=== PATIENT | male | born 1965 | race Caucasian/White ===

== ENCOUNTER 2017-02-25 12:11 | Inpatient (IN) | payer OTHER ==
[~2017-02-25] VITALS: Ht 167.6 cm; Wt 75.5 kg
[2017-02-25] MEDS ORDERED: OMEP40CA2 PO (12:33)
[2017-02-25] MEDS ORDERED: LIPI20TA PO (12:33)
[2017-02-25] MEDS ORDERED: AMLO10TA2 PO (12:33)
[2017-02-25] MEDS ORDERED: METF500T13 PO (12:33)
[2017-02-25] MEDS ORDERED: LISI20TA PO (12:33)
[2017-02-25] MEDS ORDERED: ASPI81TA85 PO (12:33)
[2017-02-25] MEDS ORDERED: NS 1,000 ML IV ONE (13:15)
[2017-02-25] MEDS ORDERED: ONDANSETRON 4MG/2ML VIAL (J2405) IV ONE (13:15)
[2017-02-25] MEDS: MORPHINE 4 MG/ML 1ML SYRINGE IV PRN ×3 (13:31→17:42)
[2017-02-25 13:36] LABS: BASO % 0.2 % (0.0-1.0); EOS % 0.4 % (0.0-3.0); IMMATURE GRANULOCYTE % 0.3 % (0-0); LYMPH % 9.2 % (24.0-44.0); MEAN CORPUSCULAR HGB CONC 32.5 g/dl (32.0-36.5); MEAN CORPUSCULAR VOLUME 83.1 fl (80.0-96.0); MONO # 0.5 10^3/uL (0.0-0.8); NEUTROPHILS # 9.6 10^3/uL (1.8-7.7); NEUTROPHILS % 85.9 % (36.0-66.0); PLATELET COUNT, AUTOMATED 265 10^3/uL (150-450); RED CELL DISTRIBUTION WIDTH 16.1 % (11.5-14.5); WHITE BLOOD COUNT 11.2 10^3/uL (4.0-10.0)
--- NOTE | 2017-02-25 13:42 | REP ---
CT abdomen pelvis without IV or bowel contrast: The entire colon is distended with fecal residue and gas. There is abrupt focal narrowing at the rectosigmoid colon, possibly a neoplastic or post inflammatory stricture. The distal small bowel is mildly dilated. The remainder of the small bowel is not dilated. There is no pneumoperitoneum. There is no ascites. The visualized lung marie are unremarkable. The unenhanced hepatic parenchyma, gallbladder, pancreas and spleen are unremarkable except for splenic calcified granulomas. The adrenals and kidneys are unremarkable. The abdominal aorta is unremarkable except for calcified atheroma. Pelvis: The bladder is unremarkable. There is no adenopathy or ascites. Impression: There is focal abrupt luminal narrowing of the rectosigmoid colon, possibly post inflammatory versus neoplastic stricture. The colon is distended with fecal residue and gas. The distal small bowel is mildly distended. Signed by Wolfgang Newman MD 02/25/2017 01:34 P
[2017-02-25 14:23] LABS: ALBUMIN 3.7 GM/DL (3.2-5.2); ALBUMIN/GLOBULIN RATIO 1.16 (1.00-1.93); ALKALINE PHOSPHATASE 80 U/L (45-117); ALT/SGPT 31 U/L (12-78); AMYLASE 39 U/L (25-115); ANION GAP 7 MEQ/L (8-16); AST/SGOT 13 U/L (15-37); BILIRUBIN,DIRECT 0.2 MG/DL (0.0-0.2); BILIRUBIN,TOTAL 0.6 MG/DL (0.2-1.0); BLOOD UREA NITROGEN 18 MG/DL (7-18); CALCIUM LEVEL 9.1 MG/DL (8.5-10.1); CARBON DIOXIDE LEVEL 26 MEQ/L (21-32); CHLORIDE LEVEL 107 MEQ/L (98-107); CREATININE FOR GFR 0.84 MG/DL (0.70-1.30); GLOMERULAR FILTRATION RATE > 60.0 (>60); GLUCOSE, FASTING 126 MG/DL (70-105); SODIUM LEVEL 140 MEQ/L (136-145); TOTAL PROTEIN 6.9 GM/DL (6.4-8.2)
[2017-02-25] MEDS ORDERED: LOPR1TAB6 PO (15:16)
[2017-02-25] MEDS ORDERED: VITMTA PO (15:16)
[2017-02-25] MEDS ORDERED: OMEP20CA3 PO (15:16)
[2017-02-25] MEDS ORDERED: GLUCTAB PO (15:16)
[2017-02-25] MEDS ORDERED: METOCLOPRAMIDE INJ 10MG/2ML VIAL (J2765) IV PRN (15:45)
[2017-02-25] MEDS ORDERED: PROMETHAZINE INJ 25 MG/ML VIAL (J2550) IV PRN (15:45)
[2017-02-25] MEDS ORDERED: MORPHINE 2 MG/ML 1ML SYRINGE IV PRN (15:45)
[2017-02-25] MEDS ORDERED: GLUCAGON FOR INJ 1 MG VIAL (J1610) SC PRN (15:45)
[2017-02-25] MEDS ORDERED: GLUCOSE 4 GM CHEW TABLET PO PRN (15:45)
[2017-02-25] MEDS ORDERED: DEXTROSE 50% 50 ML SYRINGE IV PRN (15:45)
--- NOTE | 2017-02-25 16:15 | HPEPDOC ---
General Date of Admission Primary Care Physician: A Attending Physician: Saji Armijo Jr Chief Complaint The patient is a 51-year-old male admitted with a reason for visit of Abd Pain. Source: Patient, Family ( ) Exam Limitations: No limitations Timing/Duration: Day(s) (3), Getting worse Severity: Severe Associated Symptoms: Nausea, Vomiting History of Present Illness Patient present with 3 day history of worsening abdominal pain. This morning pt woke up to severe nausea and vomiting. He states that his pain has been constant. It is made worse by moving. It is also made worse with eating and drinking. Particular coffee. That causes the most amount of pain. Patients states that prior to this, he was having normal bowel moments without any issues. However, since this started he has decrease appetite. He has only been able tolerate some crackers. He has been unable to have bowel moment and has been having very little gas. He feels the urge to defecate, but he has been unable to go and feels "really gassy". Patient denies fevers, blood in stool, denies blood in the urine. An abdominal CT showed a focal abrupt luminal narrowing of the rectosigmoid colon, possible post inflammatory versus neoplastic stricture. The colon is also distended with fecal residue and gas. The distal small bowel is mildly distended. Surgery was consulted as results of the abdominal distention and possible obstruction. Home Medications Scheduled Aspirin (Aspir-81) 81 Mg Tab, 81 MG PO DAILY, (Reported) Atorvastatin Calcium (Lipitor) 20 Mg Tab, 20 MG PO QHS, (Reported) Metformin Hydrochloride (Glucophage Xr) 500 Mg Tab, 500 MG PO DAILY, (Reported) TAKES AT NOON Metoprolol Tartrate (Lopressor) 50 Mg Tab, 50 MG PO BID, (Reported) Multivitamins *[facility] STOCKED* (Thera M Plus *[facility] STOCK[facility]*) 1 Tab Tab, 1 TAB PO DAILY, (Reported) Omeprazole (Omeprazole) 20 Mg Cap, 20 MG PO BID, (Reported) Allergies Coded Allergies: No Known Drug Allergy (Verified Allergy, Unknown, 02/25/17) Past Medical History Medical History Diabetes, hypertension Surgical History No past surgical history Family History Father of throat cancer, brother had cancer at age 46 (patient does not know what type of cancer it was) Social History * Smoker: Denies Alcohol: occationally Drugs: denies Recent Travel/Sick Contacts: Denies: Recent travel, Recent sick contacts Lives at home with his and daughter Review of Symptoms Constitutional: Reports: Chills, Weight Loss (admits to a 20 pound weight loss over the last year), Denies: Fever, Night Sweats, Fatigue Eyes: Denies: Pain, Conjunctivae inflammation, Eyelid inflammation ENT: Denies: Head Aches Skin: Denies: Rash, Jaundice Pulmonary: Denies: Dyspnea, Cough Cardiovascular: Denies: Chest Pain, Palpitations, Orthopnea Gastrointestinal: Reports: Nausea, Vomiting, Abdominal Pain, Constipation, Denies: Diarrhea, Melena, Hematochezia Genitourinary: Denies: Hematuria Hematologic: Denies: Bruising, Bleeding Excessively, Petecchia Physical Examination General Exam: Positive: Cooperative, Mild Distress Neck Exam: Positive: Supple, JVD Chest Exam: Positive: Clear to auscultation, Negative: Rales, Wheezing Heart Exam: Positive: Rate Normal, Normal S1, Normal S2, Negative: Gallops, Murmurs Abdomen Exam: Positive: Normal bowel sounds, Tenderness (palpate entire abdomen , normal bowel sounds), Other (Mild abdominal distension ), Negative: Hepatospenomegaly, Mass, Hernia Extremity Exam: Negative: Cyanosis, Edema Vital Signs Vital Signs Date Time Temp Pulse Resp B/P (MAP) Pulse Ox O2 Delivery O2 Flow Rate FiO2 02/25/17 14:54 18 02/25/17 13:54 97.9 79 132/80 (97) 99 Room Air Laboratory Data Labs 24H Laboratory Tests 2 02/25/17 13:21: Immature Granulocyte % (Auto) 0.3H, White Blood Count 11.2H, Red Blood Count 4.85, Hemoglobin 13.1L, Hematocrit 40.3L, Mean Corpuscular Volume 83.1, Mean Corpuscular Hemoglobin 27.0, Mean Corpuscular Hemoglobin Concent 32.5, Red Cell Distribution Width 16.1H, Platelet Count 265, Neutrophils (%) (Auto) 85.9H, Lymphocytes (%) (Auto) 9.2L, Monocytes (%) (Auto) 4.0, Eosinophils (%) (Auto) 0.4, Basophils (%) (Auto) 0.2, Neutrophils # (Auto) 9.6H, Lymphocytes # (Auto) 1.0L, Monocytes # (Auto) 0.5, Eosinophils # (Auto) 0.0, Basophils # (Auto) 0.0, Immature Granulocyte # (Auto) 0.0, Nucleated Red Blood Cells % (auto) 0.0, Anion Gap 7L, Glomerular Filtration Rate > 60.0, Calcium Level 9.1, Aspartate Amino Transf (AST/SGOT) 13L, Alanine Aminotransferase (ALT/SGPT) 31, Alkaline Phosphatase 80, Total Bilirubin 0.6, Direct Bilirubin 0.2, Total Protein 6.9, Albumin 3.7, Albumin/Globulin Ratio 1.16, Amylase Level 39, Lipase 169 CBC/BMP Laboratory Tests 02/25/17 13:21 Red Blood Count 4.85, Mean Corpuscular Volume 83.1, Mean Corpuscular Hemoglobin 27.0, Mean Corpuscular Hemoglobin Concent 32.5, Red Cell Distribution Width 16.1 H, Neutrophils (%) (Auto) 85.9 H, Lymphocytes (%) (Auto) 9.2 L, Monocytes ( %) (Auto) 4.0, Eosinophils (%) (Auto) 0.4, Basophils (%) (Auto) 0.2, Neutrophils # (Auto) 9.6 H, Lymphocytes # (Auto) 1.0 L, Monocytes # (Auto) 0.5, Eosinophils # (Auto) 0.0, Basophils # (Auto) 0.0 Assessment/Plan A 51-year-old gentleman who presented with 3 days worth of abdominal pain accompanied by nausea and vomiting. CT showed abrupt luminal narrowing of the rectosigmoid colon, possible inflammatory versus neoplastic stricture. Patient will be admitted. Patient will remain nothing by mouth. Simethicone has been provided for patient extreme gassiness. Antibiotics is also on board for possibility of infectious process. Patient will be monitored overnight for improvement. Tomorrow morning patient will be reassessed for clinical improvement as well as decreased abdominal distention. If patient is not improving an NG tube will be placed. Also I will consider the possibility of a GI consult for colonic stent. I expect patient's distention and abdominal pain to improve given an overnight bowel rest Plan / VTE VTE Prophylaxis Ordered?: No GME ATTESTATION GME ATTESTATION My preceptor for this patient encounter was physically present in the building during the encounter and was fully available. As needed, all aspects of the patient interview, examination, medical decision making process, and medical care plan development were reviewed and approved by the preceptor. Preceptor is aware and concurs with the plan as stated in the body of this note and will attest to such by his/her cosignature. BOSTON SANTANA DO Feb 25, 2017 15:46
[2017-02-25] MEDS ORDERED: cefTRIAXone SOD 1 GM in D5W 50 ML IV SCH (17:00)
[2017-02-25] MEDS: SIMETHICONE 80 MG CHEW TAB PO SCH ×3 (17:00→21:35)
[2017-02-25 17:20] VITALS: BP 138/88
[2017-02-25] MEDS: NS 1,000 ML IV SCH (17:25)
[2017-02-25] MEDS ORDERED: CIPROFLOXACIN 400 MG in APPROPRIATE DILUENT 1 EA IV SCH ×2 (18:00→18:45)
[2017-02-25] MEDS: HumaLOG INSULIN (NovoLOG) PER UNIT SC SCH ×2 (18:35→23:56)
[2017-02-25] MEDS ORDERED: metroNIDAZOLE 500 MG in APPROPRIATE DILUENT 1 EA IV SCH (19:00)
[2017-02-25] MEDS: ONDANSETRON 4MG/2ML VIAL (J2405) IV PRN (19:59)
[2017-02-25] MEDS: cefTRIAXone SOD 1 GM in D5W 50 ML IV SCH (21:34)
[2017-02-25] MEDS: METOPROLOL TART 50 MG TAB PO SCH (21:35)
[2017-02-25] MEDS: DOCUSATE SODIUM 100 MG CAP PO SCH (21:35)
[2017-02-25] MEDS: metroNIDAZOLE 500 MG in APPROPRIATE DILUENT 1 EA IV SCH (22:18)
[2017-02-25] MEDS: CIPROFLOXACIN 400 MG in APPROPRIATE DILUENT 1 EA IV SCH (23:55)
[2017-02-26] VITALS: BP 134/80
[2017-02-26] MEDS: PANTOPRAZOLE 40MG INJ (PROTONIX) (C9113) IV SCH ×3 (00:30→20:54)
[2017-02-26] MEDS: NS 1,000 ML IV SCH ×4 (02:45→19:56)
[2017-02-26 04:24] VITALS: BP 141/84
[2017-02-26] MEDS: ONDANSETRON 4MG/2ML VIAL (J2405) IV PRN (04:53)
[2017-02-26] MEDS: MORPHINE 4 MG/ML 1ML SYRINGE IV PRN ×3 (04:53→17:39)
[2017-02-26] MEDS: metroNIDAZOLE 500 MG in APPROPRIATE DILUENT 1 EA IV SCH ×3 (05:08→20:54)
[2017-02-26] MEDS: HumaLOG INSULIN (NovoLOG) PER UNIT SC SCH ×4 (06:00→23:27)
[2017-02-26 06:41] LABS: MEAN CORPUSCULAR HEMOGLOBIN 27.1 pg (27.0-33.0); MEAN CORPUSCULAR HGB CONC 32.5 g/dl (32.0-36.5); MEAN CORPUSCULAR VOLUME 83.3 fl (80.0-96.0); RED CELL DISTRIBUTION WIDTH 16.4 % (11.5-14.5)
[2017-02-26 07:00] LABS: ANION GAP 7 MEQ/L (8-16); BLOOD UREA NITROGEN 14 MG/DL (7-18); CALCIUM LEVEL 8.3 MG/DL (8.5-10.1); CARBON DIOXIDE LEVEL 25 MEQ/L (21-32); CHLORIDE LEVEL 110 MEQ/L (98-107); CREATININE FOR GFR 0.79 MG/DL (0.70-1.30); GLOMERULAR FILTRATION RATE > 60.0 (>60); GLUCOSE, FASTING 129 MG/DL (70-105); POTASSIUM SERUM 3.9 MEQ/L (3.5-5.1); SODIUM LEVEL 142 MEQ/L (136-145)
[2017-02-26 08:00] VITALS: BP 136/82
[2017-02-26] MEDS ORDERED: PANTOPRAZOLE 40MG TAB (PROTONIX) PO SCH (09:00)
[2017-02-26] MEDS: DOCUSATE SODIUM 100 MG CAP PO SCH ×2 (09:46→20:54)
[2017-02-26] MEDS: SIMETHICONE 80 MG CHEW TAB PO SCH ×4 (09:47→20:54)
[2017-02-26] MEDS: METOPROLOL TART 50 MG TAB PO SCH ×2 (09:47→20:54)
[2017-02-26] MEDS: CIPROFLOXACIN 400 MG in APPROPRIATE DILUENT 1 EA IV SCH ×2 (10:13→22:06)
--- NOTE | 2017-02-26 10:15 | IPNPDOC ---
Date Seen The patient was seen on 02/26/17. Progress Note Patient presented with 3 day history of worsening abdominal pain. . An abdominal CT showed a focal abrupt luminal narrowing of the rectosigmoid colon, possible post inflammatory versus neoplastic stricture. The colon is also distended with fecal residue and gas. The distal small bowel is mildly. Surgery was consulted as results of the abdominal distention and possible obstruction. This morning patient admits to mild nausea. He admitted a bowel movement as well as passing flatus. He reports decrease abdominal pain. Physical Examination Vital signs: See below General Exam: Positive: Cooperative, Mild Distress Neck Exam: Positive: Supple, JVD Chest Exam: Positive: Clear to auscultation, Negative: Rales, Wheezing Heart Exam: Positive: Rate Normal, Normal S1, Normal S2, Negative: Gallops, Murmurs Abdomen Exam: Mildly distended abdomen, nontender to palpation Negative: Hepatospenomegaly, Mass, Hernia Extremity Exam: Negative: Cyanosis, Edema Assessment/Plan A 51-year-old gentleman who presented with 3 days worth of abdominal pain accompanied by nausea and vomiting. CT showed abrupt luminal narrowing of the rectosigmoid colon, possible inflammatory versus neoplastic stricture. Antibiotics were started for the possibility of inflammatory process. This morning patient has made clinical improvement. His white count this morning is 11. I expect patient to continue to make clinical improvements, suggesting a stricture is most likely of an infectious etiology. If patient continues to make clinical improvement, I will progress his diet as tolerated. Upon discharge patient will be evaluated for the possibility of colonic malignancy. VS, I&O, 24H, Fishbone Vital Signs/I&O Vital Signs Date Time Temp Pulse Resp B/P (MAP) Pulse Ox O2 Delivery O2 Flow Rate FiO2 02/26/17 09:47 71 141/70 02/26/17 09:18 18 Room Air 02/26/17 04:24 97.9 95 I&O- Last 24 Hours up to 6 AM 02/27/17 06:00 Intake Total 100 ml Balance 100 ml Laboratory Data 24H LABS Laboratory Tests 2 02/25/17 13:21: Immature Granulocyte % (Auto) 0.3H, White Blood Count 11.2H, Red Blood Count 4.85, Hemoglobin 13.1L, Hematocrit 40.3L, Mean Corpuscular Volume 83.1, Mean Corpuscular Hemoglobin 27.0, Mean Corpuscular Hemoglobin Concent 32.5, Red Cell Distribution Width 16.1H, Platelet Count 265, Neutrophils (%) (Auto) 85.9H, Lymphocytes (%) (Auto) 9.2L, Monocytes (%) (Auto) 4.0, Eosinophils (%) (Auto) 0.4, Basophils (%) (Auto) 0.2, Neutrophils # (Auto) 9.6H, Lymphocytes # (Auto) 1.0L, Monocytes # (Auto) 0.5, Eosinophils # (Auto) 0.0, Basophils # (Auto) 0.0, Immature Granulocyte # (Auto) 0.0, Nucleated Red Blood Cells % (auto) 0.0, Anion Gap 7L, Glomerular Filtration Rate > 60.0, Calcium Level 9.1, Aspartate Amino Transf (AST/SGOT) 13L, Alanine Aminotransferase (ALT/SGPT) 31, Alkaline Phosphatase 80, Total Bilirubin 0.6, Direct Bilirubin 0.2, Total Protein 6.9, Albumin 3.7, Albumin/Globulin Ratio 1.16, Amylase Level 39, Lipase 169 02/25/17 17:47: Bedside Glucose (Misc Panel) 107H 02/25/17 23:52: Bedside Glucose (Misc Panel) 104 02/26/17 06:12: Bedside Glucose (Misc Panel) 112H 02/26/17 06:27: Nucleated Red Blood Cells % (auto) 0.0, Anion Gap 7L, Glomerular Filtration Rate > 60.0, Blood Urea Nitrogen 14, Creatinine 0.79, Sodium Level 142, Potassium Level 3.9, Chloride Level 110H, Carbon Dioxide Level 25, Calcium Level 8.3L CBC/BMP Laboratory Tests 02/25/17 13:21 Red Blood Count 4.85, Mean Corpuscular Volume 83.1, Mean Corpuscular Hemoglobin 27.0, Mean Corpuscular Hemoglobin Concent 32.5, Red Cell Distribution Width 16.1 H, Neutrophils (%) (Auto) 85.9 H, Lymphocytes (%) (Auto) 9.2 L, Monocytes ( %) (Auto) 4.0, Eosinophils (%) (Auto) 0.4, Basophils (%) (Auto) 0.2, Neutrophils # (Auto) 9.6 H, Lymphocytes # (Auto) 1.0 L, Monocytes # (Auto) 0.5, Eosinophils # (Auto) 0.0, Basophils # (Auto) 0.0 02/26/17 06:27 Red Blood Count 4.32, Mean Corpuscular Volume 83.3, Mean Corpuscular Hemoglobin 27.1, Mean Corpuscular Hemoglobin Concent 32.5, Red Cell Distribution Width 16.4 H, Calcium Level 8.3 L GME ATTESTATION GME ATTESTATION My preceptor for this patient encounter was physically present in the building during the encounter and was fully available. As needed, all aspects of the patient interview, examination, medical decision making process, and medical care plan development were reviewed and approved by the preceptor. Preceptor is aware and concurs with the plan as stated in the body of this note and will attest to such by his/her cosignature. BOSTON SANTANA DO Feb 26, 2017 10:15
[2017-02-26 12:00] VITALS: BP 128/76
[2017-02-26 16:00] VITALS: BP 120/75
[2017-02-26] MEDS: cefTRIAXone SOD 1 GM in D5W 50 ML IV SCH (19:54)
[2017-02-26 21:00] VITALS: BP 115/68
[2017-02-27] VITALS (7 sets, daily range): BP systolic 122–145; BP diastolic 72–91
[2017-02-27] MEDS: NS 1,000 ML IV SCH (00:14)
[2017-02-27] MEDS: metroNIDAZOLE 500 MG in APPROPRIATE DILUENT 1 EA IV SCH ×3 (05:39→20:37)
[2017-02-27] MEDS: HumaLOG INSULIN (NovoLOG) PER UNIT SC SCH (06:00)
[2017-02-27 06:38] LABS: MEAN CORPUSCULAR HEMOGLOBIN 27.1 pg (27.0-33.0); MEAN CORPUSCULAR HGB CONC 32.1 g/dl (32.0-36.5); MEAN CORPUSCULAR VOLUME 84.6 fl (80.0-96.0); RED CELL DISTRIBUTION WIDTH 16.3 % (11.5-14.5); WHITE BLOOD COUNT 4.9 10^3/uL (4.0-10.0)
[2017-02-27 07:06] LABS: ANION GAP 5 MEQ/L (8-16); BLOOD UREA NITROGEN 15 MG/DL (7-18); CALCIUM LEVEL 8.1 MG/DL (8.5-10.1); CARBON DIOXIDE LEVEL 27 MEQ/L (21-32); CHLORIDE LEVEL 111 MEQ/L (98-107); CREATININE FOR GFR 0.81 MG/DL (0.70-1.30); GLOMERULAR FILTRATION RATE > 60.0 (>60); GLUCOSE, FASTING 99 MG/DL (70-105); SODIUM LEVEL 143 MEQ/L (136-145)
[2017-02-27] MEDS: DOCUSATE SODIUM 100 MG CAP PO SCH ×2 (08:59→20:36)
[2017-02-27] MEDS: SIMETHICONE 80 MG CHEW TAB PO SCH (08:59)
[2017-02-27] MEDS: PANTOPRAZOLE 40MG INJ (PROTONIX) (C9113) IV SCH ×2 (08:59→20:37)
[2017-02-27] MEDS: METOPROLOL TART 50 MG TAB PO SCH ×2 (09:00→21:06)
[2017-02-27] MEDS: CIPROFLOXACIN 400 MG in APPROPRIATE DILUENT 1 EA IV SCH ×2 (09:52→22:28)
[2017-02-27] MEDS: LR 1,000 ML IV SCH (12:29)
--- NOTE | 2017-02-27 13:14 | IPN ---
DATE: 02/27/2017 The patient was admitted on the 25 of February with a sigmoid colon obstruction. He had presented with severe abdominal pain and nausea and a CT revealed a narrowed area in the sigmoid at the level of the rectosigmoid. This was described by the radiologist as an abrupt focal narrowing. The patient was maintained on nothing by mouth status and has been receiving antibiotics. He has begun passing some gas and having some liquid bowel movements. His abdomen has decompressed fairly nicely and he denies any abdominal pain or nausea or vomiting at this time. Vital signs show him to be afebrile really since admission. His pulse is in the 60s to low 70s. Blood pressure and respiratory rate are fine with a normal room air oxygen saturation. Intake and output yesterday is recorded as 3300 in with 1650 out, but there are a number of unmeasured voids and bowel movements recorded. Physical exam reveals a pleasant man sitting up quietly on the hospital bed. He appears comfortable. Sclerae are anicteric. Mucous membranes are moist. Heart exam shows a regular rhythm and the lungs are clear. The abdomen is soft and nondistended. The abdomen is nontender with bowel sounds present. Laboratory studies show white count of 5 with a hemoglobin of 11, hematocrit 35 and a platelet count of 200,000. Chemistry profile shows essentially normal electrolytes with the exception of a minimal elevation of the chloride. BUN is 15 with a creatinine of 0.8 and a glucose of 99. There is no new imaging. IMPRESSION: rectosigmoid stricture with obstruction now improved with nothing by mouth status and antibiotics. PLAN: On my review of the CT scan he does have a very sharply defined obstruction or narrowing in that area. Though a definite mass is not seen I also do not see evidence of significant inflammatory change to suggest an infectious process as the etiology for his obstruction. I suspect that this represents an underlying cancer. As he has decompressed well, I will let him try some clear liquids. We will need to perform endoscopy prior to his discharge to determine the etiology of his obstruction. If he has a tumor then I believe this should probably be addressed before he is released home to avoid him presenting with an acute obstruction and the need for urgent intervention with colostomy. CORINNE
[2017-02-28] VITALS: BP 137/78
[2017-02-28 04:30] VITALS: BP 116/65
[2017-02-28] MEDS: LR 1,000 ML IV SCH (04:54)
[2017-02-28] MEDS: metroNIDAZOLE 500 MG in APPROPRIATE DILUENT 1 EA IV SCH ×3 (04:54→20:46)
[2017-02-28 08:00] VITALS: BP 125/79
[2017-02-28] MEDS: DOCUSATE SODIUM 100 MG CAP PO SCH ×2 (10:01→20:46)
[2017-02-28] MEDS: CIPROFLOXACIN 400 MG in APPROPRIATE DILUENT 1 EA IV SCH ×2 (10:01→21:55)
[2017-02-28] MEDS: PANTOPRAZOLE 40MG INJ (PROTONIX) (C9113) IV SCH (10:03)
[2017-02-28] MEDS: METOPROLOL TART 50 MG TAB PO SCH ×2 (10:03→20:46)
--- NOTE | 2017-02-28 11:30 | REP ---
KUB: Single view. History: Follow-up colon obstruction. Comparison study CT abdomen and pelvis February 25, 2017. Findings: The bowel gas pattern is much improved. No small or large bowel dilation is seen. No significant formed stool. Psoas margins and flank stripes are intact. Vascular calcifications noted. Impression: Bowel gas pattern much improved. Signed by Cayetano Kinney MD 02/28/2017 09:39 A
[2017-02-28 16:00] VITALS: BP 128/74
--- NOTE | 2017-02-28 19:29 | IPN ---
DATE: 02/28/2017 HISTORY: The patient is a 51-year-old man admitted on 02/25 with evidence for a rectosigmoid obstruction with proximal colonic distension. He resolved his distension and pain with nothing by mouth status and intravenous (IV) fluids and antibiotics. The patient reports he is feeling well today and is tolerating clear liquids without any nausea, vomiting or abdominal pain. OBJECTIVE: VITAL SIGNS: The patient is afebrile for the last 24 hours. Pulse range is from 60-72. Respiratory rate is stable at 18 and his blood pressure is fine. INTAKE AND OUTPUT: On February 27, 2900 in with 1850 out, with several voids and bowel movements that were unmeasured. PHYSICAL EXAMINATION: Physical exam reveals a middle-aged man lying quietly on the hospital bed. He is comfortable. Heart exam shows a regular rhythm. The abdomen is nondistended. He has bowel sounds present. The abdomen is soft and nontender without appreciable mass. LABORATORY STUDIES: There are no new labs today. IMAGING: He had a KUB done this morning that shows still some air in the colon and a suggestion of a somewhat thickened and mildly dilated descending colon segment. ASSESSMENT: The patient is doing well and has tolerated clear liquids with some loose liquid bowel movements. He denies any pain. PLAN: I have recommended that we perform an endoscopy to assess the area of the stricture. If this is cancer, I would recommend that we keep him in the hospital and treat this prior to discharge. If there is no evidence of malignancy, then we may be able to monitor him closely and see if he will tolerate a more advanced diet. I will see if I can get him added on for a lower endoscopy on March 01. CORINNE
[2017-02-28 20:00] VITALS: BP 146/94
[2017-03-01] VITALS (11 sets, daily range): BP systolic 112–148; BP diastolic 72–94
[2017-03-01] MEDS: metroNIDAZOLE 500 MG in APPROPRIATE DILUENT 1 EA IV SCH ×2 (04:49→12:46)
[2017-03-01 06:59] LABS: MEAN CORPUSCULAR HEMOGLOBIN 26.9 pg (27.0-33.0); MEAN CORPUSCULAR VOLUME 81.6 fl (80.0-96.0); RED CELL DISTRIBUTION WIDTH 15.7 % (11.5-14.5); WHITE BLOOD COUNT 4.4 10^3/uL (4.0-10.0)
[2017-03-01 07:24] LABS: ANION GAP 7 MEQ/L (8-16); BLOOD UREA NITROGEN 5 MG/DL (7-18); CALCIUM LEVEL 8.7 MG/DL (8.5-10.1); CARBON DIOXIDE LEVEL 28 MEQ/L (21-32); CHLORIDE LEVEL 107 MEQ/L (98-107); CREATININE FOR GFR 0.82 MG/DL (0.70-1.30); GLOMERULAR FILTRATION RATE > 60.0 (>60); GLUCOSE, FASTING 117 MG/DL (70-105); SODIUM LEVEL 142 MEQ/L (136-145)
[2017-03-01] MEDS: DOCUSATE SODIUM 100 MG CAP PO SCH ×2 (09:00→20:41)
[2017-03-01] MEDS: CIPROFLOXACIN 400 MG in APPROPRIATE DILUENT 1 EA IV SCH (09:02)
[2017-03-01] MEDS: METOPROLOL TART 50 MG TAB PO SCH ×2 (09:03→20:40)
[2017-03-01] MEDS: PANTOPRAZOLE 40MG TAB (PROTONIX) PO SCH (09:03)
[2017-03-01] MEDS ORDERED: POTASSIUM CHLORIDE 10 MEQ SR TABLET PO ONE (12:00)
[2017-03-01] MEDS: POTASSIUM CHLORIDE INJ 40 MEQ in LR 1,000 ML IV SCH ×2 (12:46→23:12)
[2017-03-01] MEDS ORDERED: PROPOFOL 200 MG/20 ML VIAL As Ordered ONE (14:29)
[2017-03-01] MEDS ORDERED: LIDOCAINE 2% INJ 100 MG/5 ML SDV (FOR ANES.) As Ordered ONE (14:29)
--- NOTE | 2017-03-01 15:02 | ROOR ---
Patient Name: Gonzalo Berry Procedure Date: 03/01/2017 2:15 PM Date of : 1965 Age: 51 Room: [facility] Gender: Male Note Status: Finalized Procedure: Colonoscopy Indications: Abnormal CT of the GI tract, Colonic obstruction Providers: Clint Stewart MD Referring MD: Kaden BRAND [facility] Kaden BRAND [facility], Admin., Saji Armijo Jr, MD Requesting Provider: Medicines: Monitored Anesthesia Care Complications: No immediate complications. Procedure: Pre-Anesthesia Assessment: - Prior to the procedure, a History and Physical was performed, and patient medications and allergies were reviewed. The patient is competent. The risks and benefits of the procedure and the sedation options and risks were discussed with the patient. All questions were answered and informed consent was obtained. Patient identification and proposed procedure were verified by the physician, the nurse and the waterway traffic checker in the procedure room. Mental Status Examination: alert and oriented. Airway Examination: normal oropharyngeal airway and neck mobility. CV Examination: regular rate and rhythm. Prophylactic Antibiotics: The patient does not require prophylactic antibiotics. Prior Anticoagulants: The patient has taken no previous anticoagulant or antiplatelet agents. ASA Grade Assessment: II - A patient with mild systemic disease. After reviewing the risks and benefits, the patient was deemed in satisfactory condition to undergo the procedure. The anesthesia plan was to use monitored anesthesia care (MAC). Immediately prior to administration of medications, the patient was re-assessed for adequacy to receive sedatives. The heart rate, respiratory rate, oxygen saturations, blood pressure, adequacy of pulmonary ventilation, and response to care were monitored throughout the procedure. The physical status of the patient was re-assessed after the procedure. The Colonoscope was introduced through the anus with the intention of advancing to the cecum. The scope was advanced to the rectum before the procedure was aborted. Medications were given. The colonoscopy was performed with ease. The patient tolerated the procedure well. The quality of the bowel preparation was good. Findings: The perianal and digital rectal examinations were normal. A fungating, infiltrative and ulcerated completely obstructing large mass was found in the proximal rectum. The edge of the tumor was at approximately 15 cm from the anal verge. The mass was circumferential. Oozing was present. Biopsies were taken with a cold forceps for histology. Area was tattooed with an injection of 3 mL of Spot (carbon black). This was injected in 4 spots at 90degree intervals. Spot marker was injected approximately 5 cm distal to the mass. This was at about 10cm from the anal verge. 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 Biopsied. Tattooed. Recommendation: - Return patient to hospital [facility] for ongoing care. Clint Stewart MD 03/01/2017 3:01:59 PM Number of Addenda: 0 Note Initiated On: 03/01/2017 2:15 PM Estimated Blood Loss: Estimated blood loss was minimal.
[2017-03-02] VITALS: BP 124/80
[2017-03-02 04:00] VITALS: BP 131/86
[2017-03-02 08:00] VITALS: BP_SYST 143; BP_DIAS 80; BP_DIAS 88
[2017-03-02] MEDS: DOCUSATE SODIUM 100 MG CAP PO SCH ×2 (09:00→20:13)
[2017-03-02] MEDS: METOPROLOL TART 50 MG TAB PO SCH ×2 (09:03→20:13)
[2017-03-02] MEDS: PANTOPRAZOLE 40MG TAB (PROTONIX) PO SCH (09:03)
[2017-03-02] MEDS: POTASSIUM CHLORIDE INJ 40 MEQ in LR 1,000 ML IV SCH (09:04)
[2017-03-02 12:00] VITALS: BP 128/75
[2017-03-02] MEDS: POTASSIUM CHLORIDE 10 MEQ SR TABLET PO SCH ×3 (15:13→22:23)
[2017-03-02] MEDS: MIRALAX *UNIT DOSE* 17GM PACKET PO SCH ×3 (15:13→20:13)
[2017-03-02] MEDS: metroNIDAZOLE (FLAGYL) 500 MG TAB PO SCH ×2 (15:13→22:23)
[2017-03-02] MEDS: NEOMYCIN SULFATE 500 MG TAB PO SCH ×2 (15:33→22:24)
[2017-03-02 16:00] VITALS: BP 130/87
--- NOTE | 2017-03-02 17:09 | IPN ---
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 Final pathology has not yet returned. The patient has been added onto the operating room (OR) schedule for tomorrow afternoon, March 03. Vital signs: The patient has had a maximal temperature in the last 24 hours of 99.1. Pulse is in the 60s to low 70s, and his respiratory rate is at 18. His blood pressure is fine, and his room air saturations are normal. Intake and output: So far today he has had over 2500 mL orally in clear liquids. He is voiding copiously and has had a number of small loose bowel movements. PHYSICAL EXAMINATION: The patient is awake and alert. Heart and lung exams are unremarkable. The abdomen is perhaps mildly full but not distended. He has active bowel sounds. The abdomen is soft and nontender. LABORATORY FINDINGS: He does not have any new labs today. 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 PLAN: The patient has been added onto the OR schedule for March 03 for a laparoscopic low anterior rectosigmoid resection. He was counseled for the procedure to include the indications for the procedure as well as the risks. Risks include, but are not limited to, bleeding, infection, scarring, adverse drug reaction, need for further surgery, injury of internal organs, anastomotic leak, and hernia. He has been started on a bowel prep, consisting of several doses of MiraLax in addition to his clear liquid diet as well as neomycin and Flagyl orally. A dose of ertapenem has been ordered for preoperative administration. The patient was counseled that we were unable to evaluate his upper colon because of the impassibility of his tumor, so it is possible that he would have a residual polyp or even a second malignancy not yet identified. We will need to watch for this postoperatively. The other issue is that if his colon is thickened or distended excessively, it may not be safe to perform an anastomosis to his rectum. I advised him that if this were the case, we might perform the anastomosis but also perform a temporary diverting ileostomy or colostomy. The patient had an opportunity to ask questions. He desires to proceed with the surgery. CORINNE
[2017-03-02 20:00] VITALS: BP 148/81
[2017-03-03] VITALS (9 sets, daily range): BP systolic 114–143; BP diastolic 66–89
[2017-03-03] MEDS ORDERED: ERTAPENEM SODIUM 1 GM in NS MINI-BAG PLUS 50 ML IV ONE (06:00)
[2017-03-03] MEDS: metroNIDAZOLE (FLAGYL) 500 MG TAB PO SCH (06:05)
[2017-03-03] MEDS: NEOMYCIN SULFATE 500 MG TAB PO SCH (06:50)
[2017-03-03 08:12] LABS: BASO # 0.1 10^3/uL (0.0-0.2); EOS # 0.2 10^3/uL (0.0-0.50); IMMATURE GRANULOCYTE % 0.2 % (0-0); LYMPH # 1.6 10^3/uL (1.5-4.5); LYMPH % 33.1 % (24.0-44.0); MEAN CORPUSCULAR HGB CONC 32.6 g/dl (32.0-36.5); MEAN CORPUSCULAR VOLUME 82.9 fl (80.0-96.0); MONO # 0.6 10^3/uL (0.0-0.8); NEUTROPHILS # 2.4 10^3/uL (1.8-7.7); NEUTROPHILS % 48.7 % (36.0-66.0); PLATELET COUNT, AUTOMATED 248 10^3/uL (150-450); RED CELL DISTRIBUTION WIDTH 15.9 % (11.5-14.5); WHITE BLOOD COUNT 4.8 10^3/uL (4.0-10.0)
[2017-03-03 08:37] LABS: ALBUMIN 3.4 GM/DL (3.2-5.2); ALBUMIN/GLOBULIN RATIO 0.92 (1.00-1.93); ALKALINE PHOSPHATASE 73 U/L (45-117); ALT/SGPT 34 U/L (12-78); ANION GAP 6 MEQ/L (8-16); AST/SGOT 17 U/L (15-37); BILIRUBIN,TOTAL 0.3 MG/DL (0.2-1.0); BLOOD UREA NITROGEN 6 MG/DL (7-18); CALCIUM LEVEL 9.2 MG/DL (8.5-10.1); CARBON DIOXIDE LEVEL 26 MEQ/L (21-32); CHLORIDE LEVEL 107 MEQ/L (98-107); CREATININE FOR GFR 0.84 MG/DL (0.70-1.30); GLOMERULAR FILTRATION RATE > 60.0 (>60); GLUCOSE, FASTING 113 MG/DL (70-105); POTASSIUM SERUM 4.2 MEQ/L (3.5-5.1); SODIUM LEVEL 139 MEQ/L (136-145); TOTAL PROTEIN 7.1 GM/DL (6.4-8.2)
[2017-03-03] MEDS: PANTOPRAZOLE 40MG TAB (PROTONIX) PO SCH (08:51)
[2017-03-03] MEDS: DOCUSATE SODIUM 100 MG CAP PO SCH (08:51)
[2017-03-03] MEDS: METOPROLOL TART 50 MG TAB PO SCH ×2 (08:52→21:56)
[2017-03-03] MEDS ORDERED: ROCURONIUM BROMIDE 50 MG/5 ML VIAL/SYRINGE As Ordered ONE ×3 (09:11→16:16)
[2017-03-03] MEDS ORDERED: LIDOCAINE 2% INJ 100 MG/5 ML SDV (FOR ANES.) As Ordered ONE (09:11)
[2017-03-03] MEDS ORDERED: PROPOFOL 200 MG/20 ML VIAL As Ordered ONE ×2 (09:11→15:44)
[2017-03-03] MEDS ORDERED: dexameTHASONE 4 MG/ML 1ML VIAL (J1100) As Ordered ONE (09:11)
[2017-03-03] MEDS ORDERED: fentaNYL 250 MCG/5 ML INJECTION (J3010) As Ordered ONE (09:11)
[2017-03-03] MEDS ORDERED: MIDAZOLAM INJ 2 MG/2 ML VIAL (J2250) As Ordered ONE ×2 (09:12→18:43)
[2017-03-03] MEDS ORDERED: BUPIVACAINE HCL 0.25% 30 ML VIAL As Ordered ONE (13:04)
[2017-03-03] MEDS ORDERED: ePHEDrine SULFATE 25 MG/5 ML(5MG/ML) SYRINGE As Ordered ONE (14:35)
[2017-03-03] MEDS ORDERED: PHENYLephrine HCL 500 MCG/5 ML (100MCG/ML) SYRINGE (J2370) As Ordered ONE (15:09)
[2017-03-03] MEDS ORDERED: ONDANSETRON 4MG/2ML VIAL (J2405) As Ordered ONE (15:09)
[2017-03-03] MEDS ORDERED: NEOSTIGMINE 10 MG/10 ML VIAL (J2710) As Ordered ONE (15:09)
[2017-03-03] MEDS ORDERED: GLYCOPYRROLATE INJ 0.2 MG/ML 2 ML VIAL As Ordered ONE (15:09)
[2017-03-03] MEDS ORDERED: HYDROmorphone HCL 2 MG/ML 1ML VIAL (J1170) As Ordered ONE (15:51)
[2017-03-03] MEDS ORDERED: SEVOFLURANE INHAL SOLN 250 ML BTL As Ordered ONE (16:14)
--- NOTE | 2017-03-03 16:35 | ECGEPIP ---
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 No prior ECG available for comparison at the time of interpretation. Electronically Signed On 03-03-2017 16:35:12 EDT by James Hook
[2017-03-03] MEDS ORDERED: MORPHINE 2 MG/ML 1ML SYRINGE IV PRN (19:00)
[2017-03-03] MEDS ORDERED: LR 1,000 ML IV SCH (19:00)
[2017-03-03] MEDS ORDERED: HYDROmorphone HCL 1 MG/ML SYRINGE (J1170) IV PRN (19:00)
[2017-03-03] MEDS ORDERED: MEPERIDINE INJ 25 MG/ML VIAL (J2175) IV PRN (19:00)
[2017-03-03] MEDS ORDERED: ONDANSETRON 4MG/2ML VIAL (J2405) IV PRN (19:00)
[2017-03-03] MEDS ORDERED: ACETAMINOPHEN TAB 650MG DOSE (2X325MG) PO PRN (19:00)
[2017-03-03] MEDS ORDERED: fentaNYL 100 MCG/2 ML INJECTION (J3010) IV PRN (19:00)
[2017-03-03] MEDS ORDERED: fentaNYL 100 MCG/2 ML INJECTION (J3010) As Ordered ONE (19:17)
[2017-03-03] MEDS: KETOROLAC 30 MG/ML VIAL (J1885) IV SCH (20:38)
[2017-03-03] MEDS: LR 1,000 ML IV SCH (21:55)
[2017-03-03] MEDS: ALVIMOPAN 12 MG CAPSULE (ENTEREG) PO SCH (21:55)
[2017-03-04] VITALS (7 sets, daily range): BP systolic 11–133; BP diastolic 64–85
[2017-03-04] MEDS: KETOROLAC 30 MG/ML VIAL (J1885) IV SCH ×4 (02:33→20:04)
[2017-03-04] MEDS: LR 1,000 ML IV SCH (06:11)
[2017-03-04] MEDS: ENOXAPARIN 40 MG/0.4 ML SYRINGE (J1650) SC SCH (06:51)
[2017-03-04 07:20] LABS: BASO % 0.3 % (0.0-1.0); EOS % 0.4 % (0.0-3.0); IMMATURE GRANULOCYTE % 0.3 % (0-0); LYMPH # 1.4 10^3/uL (1.5-4.5); LYMPH % 18.8 % (24.0-44.0); MEAN CORPUSCULAR HEMOGLOBIN 26.8 pg (27.0-33.0); MEAN CORPUSCULAR HGB CONC 32.7 g/dl (32.0-36.5); MEAN CORPUSCULAR VOLUME 82.2 fl (80.0-96.0); MONO % 12.7 % (0.0-5.0); NEUTROPHILS # 5.1 10^3/uL (1.8-7.7); NEUTROPHILS % 67.5 % (36.0-66.0); PLATELET COUNT, AUTOMATED 241 10^3/uL (150-450); RED CELL DISTRIBUTION WIDTH 15.8 % (11.5-14.5); WHITE BLOOD COUNT 7.5 10^3/uL (4.0-10.0)
[2017-03-04 07:36] LABS: ANION GAP 7 MEQ/L (8-16); BLOOD UREA NITROGEN 11 MG/DL (7-18); CALCIUM LEVEL 8.7 MG/DL (8.5-10.1); CARBON DIOXIDE LEVEL 27 MEQ/L (21-32); CHLORIDE LEVEL 105 MEQ/L (98-107); CREATININE FOR GFR 0.95 MG/DL (0.70-1.30); GLOMERULAR FILTRATION RATE > 60.0 (>60); GLUCOSE, FASTING 108 MG/DL (70-105); SODIUM LEVEL 139 MEQ/L (136-145)
--- NOTE | 2017-03-04 07:59 | RO ---
DATE OF PROCEDURE: 03/03/2017 PREOPERATIVE DIAGNOSIS: Obstructing rectal carcinoma. POSTOPERATIVE DIAGNOSIS: Obstructing rectal carcinoma. PROCEDURE PERFORMED: Laparoscopic low anterior rectosigmoid resection with anastomosis and takedown of the splenic flexure, with flexible sigmoidoscopic exam of the anastomosis. SURGEON: Dr. Stewart STRUCTURAL STEEL DETAILER: Dr. Mosqueda ANESTHESIA: General. INDICATIONS FOR THE PROCEDURE: The patient is a 51-year-old man who was admitted to the hospital on 02/25/2017 with a rectosigmoid obstruction. A CT scan showed a very discrete stricture in this area but without acute inflammatory changes. He was initially treated with antibiotics and nothing by mouth status and he gradually improved. Endoscopy on 03/01/2017 revealed an obstructing mass at approximately 15 cm from the anal verge. Biopsies were consistent with moderately differentiated adenocarcinoma and he is now for a laparoscopic low anterior resection. OPERATIVE PROCEDURE: The patient was placed under general endotracheal anesthesia. Sequential stockings were utilized. A Unger catheter was inserted. A nasogastric tube was inserted by anesthesia. The patient was moved into a low lithotomy position and the patient's abdomen was prepped and draped in a sterile fashion. 0.25% Marcaine was infiltrated at each of the trocar sites prior to insertion. A short supraumbilical midline incision was made, which was deepened through the subcutaneous tissues and fascia and a Kenny cannula was inserted. The abdomen was insufflated with carbon dioxide gas and the laparoscope was placed. Initial examination showed a normal-appearing liver. The gallbladder was well seen and appeared normal. Visualized loops of the small and large bowel appeared normal. The patient was tilted to a Trendelenburg position. There were a few filmy adhesions of the sigmoid colon along the left lateral pelvic wall. A 5 mm trocar was placed in the right midabdomen at the level of the umbilicus. A second 5 mm trocar was placed lower in the right lower quadrant. Graspers were inserted. Inspection revealed a significant thickening in the proximal rectum. Spot marker had been injected and this appeared to be slightly below the level of the peritoneal reflection seen anteriorly low in the pelvis. The descending and sigmoid colons appeared to have some slight muscular hypertrophy but were not significantly distended. Using the Harmonic scalpel, the lateral attachments of the sigmoid colon at the pelvic brim were divided. Dissection was carried up along the proximal sigmoid and the descending colon dividing the lateral attachments and mobilizing the colon medially. The dissection was carried through the medial aspect of the mesentery. The dissection was carried up to the proximal descending colon. Attention was then turned to dissection of the inferior mesenteric vessels. A 5 mm trocar was placed in the left upper quadrant for an additional retractor. This was used to elevate the sigmoid colon. Dissection was carried out at the root of the mesentery of the sigmoid. The peritoneum was opened widely. The inferior mesenteric vessels were identified. The vascular bundle was dissected circumferentially and then divided with a vascular load of the [place] stapler. The dissection was then carried inferiorly elevating the fibrofatty tissues of the mesentery with the vessels off of the retroperitoneum. The left ureter was identified and preserved. After dissecting the mesentery distally somewhat, I elected to proceed with division of the colon. Therefore, the remaining mesentery up to the wall of the colon was divided at a point selected for division. The colon was divided with a firing of the [place] stapler with a green load. The colon was then elevated and dissection proceeded inferiorly. The dissection was carried across the pelvic brim and the appropriate plane was developed for a total mesorectal excision. The peritoneum was divided to the right and left using the Harmonic scalpel and dissection then proceeded inferiorly more rapidly through the appropriately plane elevating the rectum with the mesentery anteriorly. The right and left sides of the dissection were completed with the Harmonic scalpel. Dissection proceeded distal to the obvious level of the mass. The carbon spot marker was identified in the perirectal tissues distally and the dissection was carried slightly beyond this level. The perirectal tissues at the distal point of dissection were then divided up to the wall of the rectum using the Harmonic scalpel. The rectum was transected using three loads of the [place] stapler. The specimen was pulled out of the pelvis and the pelvis was copiously irrigated with saline and this was then removed. There were no evident bleeding points. At this point, the specimen was grasped with one grasper and the end of the sigmoid colon was grasped with another. The abdomen was deflated and the scope was removed. The supraumbilical trocar site was extended inferiorly to approximately 6-7 cm around the right side of the umbilicus. A Mobius retractor was inserted. The specimen was grasped and delivered through the wound. By palpation it was clear that the patient had a large mass, approximately 4 cm to 5 cm from the distal margin. The proximal margin was perhaps 12-15 cm from the tumor. There was some puckering of the peritoneum at the level of the tumor but no definite tumor was seen on the surface. I did not feel any definite enlarged nodes within the mesentery, though nodes had been seen in the retroperitoneum along the inferior mesenteric vessels. The end of the sigmoid colon was then delivered through the wound. There was good pulse palpable in the mesentery. Approximately 3 cm of the end of the bowel were resected where it had been slightly undermined during dissection. There was some thickening of the bowel wall but this did not appear excessive. There appeared primarily to be some hypertrophy of the muscle. Some fibrofatty tissue was trimmed from the end of the colon. A pursestring suture of #2-0 Prolene was placed in the end of the colon and the anvil of a 33 mm EEA stapler was inserted and the pursestring tied down. A second pursestring was also placed to reinforce this closure. The end of the bowel was irrigated and this was then reduced into the abdomen. At this point, the surgical team changed gown and gloves. The Mobius retractor was removed. The fascia was closed with interrupted simple sutures of #1 Vicryl. At this point, we were using the closing tray, which had been set aside previously. The abdomen was then reinflated. The anvil of the stapler was pulled down into the pelvis and there appeared to be some mild tension on the colon. I therefore elected to proceed with some additional dissection. The patient was repositioned to a reverse Trendelenburg position. Some additional attachments of the distal transverse and proximal descending colon were divided with the Harmonic essentially performing a mobilization of the splenic flexure. This appeared to provide the laxity for a safe anastomosis. The patient was then placed back into a Trendelenburg position. The colon was pulled down into the pelvis. I went down to the perineum and gently dilated the patient's anus and inserted the stapler. This was advanced to the end of the rectal stump. The post of the stapler was advanced adjacent to the staple line and the anvil was attached. The stapler was then carefully closed. Care was taken not to over tighten the closure. The stapler was fired and removed. Inspection revealed two excellent tissue doughnuts within the stapler. The colon was occluded with a vascular clamp by Dr. Mosqueda. I inserted a colonoscope into the anus and advanced this past the anastomosis. The bowel all appeared viable. A small bleeding point was identified along the staple line. This appeared to be posterior. It took some minutes to set up a hot biopsy forceps to attempt cauterization of this and by the time the equipment was in place the small bleeding point had stopped. I identified one small area that appeared to be oozing slightly and this was cauterized. There was no further bleeding identified. The staple line appeared to be nicely intact. Dr. Mosqueda inspected within the pelvis looking for any air leaks at the anastomosis and no air leak was seen. The anastomosis appeared to lie at approximately 7 cm above the anal verge. The scope was removed. I then changed gown and gloves and returned to the abdomen. The irrigation was removed from the pelvis and from other areas of the abdomen. Final inspection showed no evidence of leak. There did not appear to be any significant tension on the anastomosis. The patient was returned to a flat position. The abdomen was deflated and the trocars were all removed. A Endoclose device was used to place a single #0 Vicryl suture on the inner aspect of the 12 mm trocar in the right lower quadrant. This had been placed through the initial 5 mm site to enable the use of the [place] stapler. The skin incisions were all closed with buried #4-0 Vicryl and Steri-Strips. Light dressings were applied. I opened the specimen partially off the field. He appeared to have an excellent roughly 4 cm margin distally with a much longer margin proximally. This was placed in formalin for permanent pathology. The patient tolerated the procedure well without apparent complication. He was awakened in the operating room, extubated and moved to the recovery room in stable condition. CORINNE
[2017-03-04] MEDS: ALVIMOPAN 12 MG CAPSULE (ENTEREG) PO SCH ×2 (09:49→20:05)
[2017-03-04] MEDS: PANTOPRAZOLE 40MG TAB (PROTONIX) PO SCH (09:50)
[2017-03-04] MEDS: NORCO, ANEXSIA 5/325MG TABLET (HYDROcodone/ACETAMINOPHEN) PO PRN ×3 (09:50→20:06)
[2017-03-04] MEDS: METOPROLOL TART 50 MG TAB PO SCH ×2 (09:50→20:07)
--- NOTE | 2017-03-04 15:29 | IPN ---
DATE: 03/04/2017 HISTORY: Patient is now day 1 from a laparoscopic low anterior rectosigmoid resection for an obstructing carcinoma. He reports that he has been taking some clear liquids with no nausea or vomiting. He has had no flatus or bowel movement yet. He has been out of bed. He denies significant pain at this time. Vital signs show him to be afebrile with a pulse of 65-73 with a normal respiratory rate and blood pressure. Intake and output: He had 4400 in yesterday with 450 out. He has had 1425 mL of urine output since midnight. PHYSICAL EXAM: Patient is alert and oriented. Heart exam shows a regular rate and rhythm. The lungs are clear. The abdomen is flat with active bowel sounds. His dressings are dry. Unger catheter is draining clear light-yellow urine. LABORATORY STUDIES: CBC shows a white count of 7.5 with a hemoglobin of 11, hematocrit of 35, and a platelet count of 241,000. Differential count shows 68% neutrophils, 19% lymphocytes, and 13% monocytes. Chemistry profile shows normal electrolytes with a BUN of 11, creatinine 0.95, and a glucose of 108. Pathology is pending. IMPRESSION: Is excellent postop result now one day postoperative from his low anterior resection. PLAN: We will remove his Unger catheter today. He was counseled to continue to measure his urine output. I will stop his intravenous (IV) fluid as he appears already to be drinking well and stop his nasal cannula oxygen. MTDD
[2017-03-05] VITALS: BP 103/62
[2017-03-05] MEDS: KETOROLAC 30 MG/ML VIAL (J1885) IV SCH ×2 (01:58→06:51)
[2017-03-05 04:00] VITALS: BP 102/71
[2017-03-05] MEDS: NORCO, ANEXSIA 5/325MG TABLET (HYDROcodone/ACETAMINOPHEN) PO PRN (06:50)
[2017-03-05] MEDS: ENOXAPARIN 40 MG/0.4 ML SYRINGE (J1650) SC SCH (06:51)
[2017-03-05 08:00] VITALS: BP 139/79
[2017-03-05] MEDS: PANTOPRAZOLE 40MG TAB (PROTONIX) PO SCH (08:51)
[2017-03-05] MEDS: ALVIMOPAN 12 MG CAPSULE (ENTEREG) PO SCH (08:51)
[2017-03-05 08:52] VITALS: BP 139/79
[2017-03-05] MEDS: METOPROLOL TART 50 MG TAB PO SCH (08:52)
[2017-03-05] MEDS ORDERED: INFLUENZA QUADRIVALENT PF VACCINE 0.5ML SYRINGE (90686) IM ONE (09:00)
[2017-03-05] MEDS ORDERED: NORCOTAB PO (11:23)
--- NOTE | 2017-03-05 11:59 | IPN ---
DATE: 03/05/2017 HISTORY: Patient is 2 days postop from a laparoscopic low anterior resection with coloproctostomy for an obstructing upper rectal cancer. The patient reports that he is doing well. He has had some bowel function with small loose bowel movements. He denies significant pain except when he laughs. He would like to go home and I note that this is his 52th birthday. Vital signs: The patient is afebrile with a pulse in the 50s to 60s. His respiratory rate and blood pressure are fine. Intake and output shows that yesterday he had 2500 in and 2500 out. He is eating regular food now without difficulty. Physical exam reveals patient is sitting up comfortably in the hospital bed. Heart exam shows a regular rate and rhythm of about 60. The lungs are clear. The abdomen shows clean incisions with Steri-Strips in place. The abdomen is soft without undue tenderness. He has active bowel sounds throughout. LABORATORY STUDIES: The patient has no new labs today. His pathology is pending from his surgery. IMPRESSION: Doing very well 2 days postop from a laparoscopic low anterior resection for an obstructing carcinoma. He has had a return of bowel function. He is taking a regular diet now with no nausea or vomiting and he has had no rectal bleeding. He has very little discomfort. PLAN: The patient will be discharged home today. He was counseled regarding the limitations on his activity. He was reminded that his bowel movements are likely to be more frequent and smaller and that he will have less warning about the need to defecate. He was advised that he can take jqym-amr-bfethve meds like acetaminophen or ibuprofen. I will provide a prescription for [place] for more severe discomfort. He was counseled that problems can still occur in the initial few days after discharge and that he should call the office for fevers or chills , increasing abdominal pain, or signs of infection. We will schedule him an appointment for next week. CORINNE
--- NOTE | 2017-03-12 16:53 | DSES ---
DATE OF ADMISSION: 02/25/2017 DATE OF DISCHARGE: 03/05/2017 ADMISSION DIAGNOSIS: Rectosigmoid obstruction. HISTORY OF PRESENT ILLNESS: The patient is a pleasant 51-year-old man who presented to the emergency department with a three-day history of worsening abdominal pain. He developed severe nausea and vomiting with some abdominal distension. The patient denied any prior issues with his bowel movements or any history of bleeding. He was evaluated on presentation with a CT scan which showed a very discrete luminal narrowing in the rectosigmoid. The patient was initially admitted and treated with antibiotics. He was kept nothing by mouth, but a nasogastric tube was apparently not inserted. With nothing by mouth status and hydration, he had some improvement in his symptoms. He passed small amounts of gas and had a small bowel movement by the following day. He was continued on antibiotics. The patient underwent a flexible sigmoidoscopic exam on March 01 which revealed a large completely obstructing mass at approximately 15 cm from the anal verge. The appearance was consistent with a large obstructing rectal cancer. Biopsies were obtained. Spot marker was used to tattoo the bowel wall approximately 5 cm distal to the inferior margin of the tumor. Biopsies returned showing invasive colonic adenocarcinoma. The patient was counseled for additional surgery. On March 03, he was taken to the operating room where he underwent a laparoscopic low anterior rectosigmoid resection with coloproctostomy. Takedown of the splenic flexure was performed, as well as flexible sigmoidoscopic examination of the anastomosis at the conclusion of procedure. The patient's postoperative course was excellent. He tolerated clear liquids and was rapidly advanced back to a regular diet. He was counseled regarding the anticipated changes in his bowel habits with increased frequency and decreased firmness of his stools. He was doing well by March 05 and was discharged home in good condition. His pathology subsequently returned revealing a circumferential invasive colonic adenocarcinoma which was moderately differentiated. The carcinoma invaded the full thickness of the muscularis propria and was noted at the surface of the serosa in a puckered area. The resection margins were free of malignancy. There were approximately 34 lymph nodes identified, four of which contained tumor. Specimens were sent for MSI, BRAF, KRAS, and NRAS testing with results to follow. FINAL DIAGNOSES: 1. Obstructing invasive colonic adenocarcinoma of the rectosigmoid region. 2. Hypertension. 3. Diabetes. 4. Hyperlipidemia. 5. Gastroesophageal reflux disease. PROCEDURE PERFORMED: 1. Flexible sigmoidoscopic exam with biopsy of rectal mass and spot marker injection. 2. Laparoscopic low anterior rectosigmoid resection with coloproctostomy, takedown of the splenic flexure, and flexible sigmoidoscopic exam of the anastomosis. DISPOSITION: The patient was discharged on March 05. He was advised that he could continue a regular diet. He was to followup with me in the office on February. He was advised against any strenuous activity or lifting greater than 25 pounds. He could shower as desired but was instructed to leave his Steri-Strips to come off on their own. He was to continue his preoperative medications and also was provided a prescription for [place] to take on an as-needed basis. He was to call for any problems.
== END 2017-03-05 11:55 | disposition home or self-care (01) | DRG 221 ==
LOC: M ED 12:11 → M ED INP 15:34 → M MS4PR 17:15 → M PED 02-27 14:31 → M ED INP 03-01 13:58 → M PED 03-01 14:09
PROVIDERS: ADMIT Surgery; ATTEND Surgery
PROC: 0DBP8ZX Excision of Rectum, Via Natural or Artificial Opening Endoscopic, Diagnostic (ICD-10-PCS; principal; 2017-03-01 12:00)
PROC: 0DTN4ZZ Resection of Sigmoid Colon, Percutaneous Endoscopic Approach (ICD-10-PCS; 2017-03-03)
PROC: 07BB4ZX Excision of Mesenteric Lymphatic, Percutaneous Endoscopic Approach, Diagnostic (ICD-10-PCS; 2017-03-03)
DX: C19 Malignant neoplasm of rectosigmoid junction (principal); K56.690 Other partial intestinal obstruction; E11.9 Type 2 diabetes mellitus without complications; I10 Essential (primary) hypertension; Z79.82 Long term (current) use of aspirin; Z79.899 Other long term (current) drug therapy

== ENCOUNTER → 2017-04-01 | Outpatient (REF) | payer OTHER ==
[~2017-04-01] MED LIST: AMLO10TA2 PO; ASPI81TA85 PO; GLUCTAB PO; LIPI20TA PO; LISI20TA PO; LOPR1TAB6 PO; METF500T13 PO; NORCOTAB PO; OMEP20CA3 PO; OMEP40CA2 PO; VITMTA PO
[2017-04-01 18:57] LABS: INR 0.98
== END ==
LOC: M LAB REF 16:29
PROVIDERS: ATTEND Internal Medicine Medical Oncology
DX: C20 Malignant neoplasm of rectum (principal)

== ENCOUNTER → 2017-04-07 | Outpatient (CLI) | payer OTHER ==
[~2017-04-07] MED LIST changes: +ISOVUE-370 76% 100ML VIAL (Q9967) As Ordered ONE
--- NOTE | 2017-04-07 09:54 | REP ---
CT chest with IV contrast: History: Colon carcinoma. Comparison CT abdomen study February 25, 2017. Comparison chest CT studies are from April 14, 2010 and April 22, 2009 from [facility]. CT contrast dose: 75 ml of intravenous Isovue [address] findings: There is no evidence of pleural or pericardial effusion. No hilar or mediastinal mass or adenopathy is seen. No liver or adrenal nodule is observed. There is some fatty infiltration of the liver. No new pulmonary nodule is appreciated. There are multiple bilateral pleural plaques one or two of which are calcified. These are unchanged from the prior study. There is a granulomatous calcification in the superior segment of the left lower lobe unchanged. There is other calcified granuloma in the left perihilar region. This is also unchanged. No vascular abnormality is observed. No bony destructive lesion is seen. Impression: Old granulomatous changes and benign pleural plaquing. Otherwise no active disease. Mild fatty infiltration of the liver. Signed by Cayetano Kinney MD 04/07/2017 10:13 A
== END ==
LOC: M RAD 07:50
PROVIDERS: ATTEND Internal Medicine Medical Oncology
DX: C18.9 Malignant neoplasm of colon, unspecified (principal)

== ENCOUNTER → 2017-04-12 | Outpatient (CLI) | payer OTHER ==
[~2017-04-12] MED LIST changes: -ISOVUE-370 76% 100ML VIAL (Q9967) As Ordered ONE; +LIDOCAINE 2% MDV 20 ML VIAL As Ordered ONE; +MIDAZOLAM INJ 2 MG/2 ML VIAL (J2250) As Ordered ONE; +ceFAZolin 1GM INJ (J0690) As Ordered ONE; +fentaNYL 100 MCG/2 ML INJECTION (J3010) As Ordered ONE
--- NOTE | 2017-04-12 16:59 | REPIR ---
DATE OF PROCEDURE: 04/12/2017 PREPROCEDURE DIAGNOSIS: Colon cancer, port placement required for chemotherapy. POSTPROCEDURE DIAGNOSIS: Colon cancer, port placement required for chemotherapy. PROCEDURE: Ultrasound guided vascular access, fluoroscopic guidance for central venous access device placement, left internal jugular vein central venous tunneled catheter with port. SURGEON: Dr. Joan Burks SOLAR ENERGY SYSTEM INSTALLER HELPER: Linda Condon and Yusra Gonzales. ANESTHESIA: Local with moderate sedation with 2 mg of Versed, 100 mcg of Fentanyl and 20 mL of 2% Lidocaine. SEDATION TIME: From 1326 p.m. to 1350 p.m. for a total of 24 minutes. The sedation was administered by myself with the cardiopulmonary monitoring performed by the RN in the room under my direct supervision. I was present for and directed the entire case. FLUORO TIME: 0.2 minutes. CONTRAST: None. PREOPERATIVE ANTIBIOTICS: 1 gram of Ancef. IMPLANTS: Left internal jugular vein central venous tunneled catheter with Smartport. COMPLICATION: None. DRAINS: None. SPECIMENS: None. INDICATION: Patient is a 52-year-old male with colon cancer who requires chemotherapy and will undergo placement of a central venous tunneled catheter with port for access for chemotherapy. Risks, benefits and alternative treatment options were discussed with the patient. Benefits included but were not limited to central venous catheter with a port subcutaneous in the chest for access for chemotherapy installation. Alternative treatment options included but were not limited to no intervention. Risks included but were not limited to infection, bleeding, renal failure requiring hemodialysis, possible need for open surgical intervention, pneumothorax, hemothorax, cerebrovascular accident, myocardial infarction, pulmonary embolus, deep venous thrombosis (DVT), loss of limb, loss of life, failure of port to function properly requiring revision and or removal and poor outcome. Patients questions were answered. Patient voices understanding of these risks, benefits and alternative treatment options and agrees to proceed. PROCEDURE: The patient was taken to the angiography suite and placed supine on the angiography room table and then prepped and draped in a standard surgical fashion. A time out was then completed by myself and the team within the room confirming the correct patient, procedure, and laterality. The ultrasound was then used to evaluate the left internal jugular vein which was noted to be easily compressible, free of thrombus and widely patent. Ultrasound was then used to guide cannulation of the left internal jugular vein with real-time concurrent visualization of entry of the needle into the left internal jugular vein after anesthetizing the overlying skin with 2% Lidocaine. The ultrasound hard copy image was preserved. The micropuncture wire was advanced through the micropuncture needle which was upsized to a micropuncture sheath. The patient was then given sedation as well antibiotics through the sheath after which the sheath was cannulated with a J-wire. A subcutaneous pocket was created in the left chest. After anesthetizing the overlying skin with 2% Lidocaine the catheter was then tunneled from the pocket to the puncture wound at the left internal jugular vein entry site. The left internal jugular vein was then dilated and an introducer sheath positioned under fluoroscopic guidance and the catheter was advanced through the introducer sheath which was peeled away and removed. Catheter was positioned with the tip in the superior vena cava, right atrial junction and correlated to 25 cm of catheter length. The catheter was then aspirated and noted to aspirate easily and then flushed with heparinized saline. The catheter was connected to the Smartport which was placed in the pocket previously created. The port was accessed with a Uber needle and the port was then flushed with heparinized saline after noting to aspirate easily. The incisions were closed with 2-0 Vicryl to approximate the chest incision in an inverted interrupted fashion. 2-0 Vicryl was used to close the puncture wound in the left neck with an inverted interrupted suture. Steri-strips and dressings were applied. The patient tolerated the procedure well. All instruments, sponge and needle counts were correct at the end of the case. There were no complications. Dr. Burks was present for and directed the entire case. Patient was transferred to the holding area and subsequently discharged in stable condition. RADIOLOGIC SUPERVISION INTERPRETATION: The ultrasound of the left internal jugular vein showed the left internal jugular vein to be easily compressible, free of thrombus and widely patent. Ultrasound was used to guide cannulation of the left internal jugular vein with a hard copy image preserved of the real time concurrent imaging of the entry of the needle into the left internal jugular vein. The left internal jugular vein was then sequentially dilated under fluoroscopic guidance and an introducer sheath positioned after which the catheter was advanced through the introducer sheath. Final fluoroscopic imaged showed the port and catheter to be in good position and good alignment with the tip of the catheter in the superior vena cava, right atrial junction. The length of the catheter was 25 cm. There was no pneumo or hemothorax noted. The port is stable for use for access.
== END | disposition home or self-care (01) ==
LOC: M IRPRO 12:10
PROVIDERS: ATTEND Internal Medicine Medical Oncology
DX: C18.9 Malignant neoplasm of colon, unspecified (principal)
CPT/HCPCS: 36561; 76937; 77001; 99152; 99153; C1788; C1894; J0690; J2250; J3010

== ENCOUNTER → 2017-04-27 | Outpatient (CLI) | payer OTHER ==
[~2017-04-27] MED LIST changes: -LIDOCAINE 2% MDV 20 ML VIAL As Ordered ONE; -MIDAZOLAM INJ 2 MG/2 ML VIAL (J2250) As Ordered ONE; -ceFAZolin 1GM INJ (J0690) As Ordered ONE; -fentaNYL 100 MCG/2 ML INJECTION (J3010) As Ordered ONE
--- NOTE | 2017-04-28 10:38 | RADONC ---
RADIATION ONCOLOGY CONSULTATION NOTE DATE: 04/27/2017 CHART NUMBER: [id number] DIAGNOSIS: STAGE: IIIC, [id number]. ECOG PERFORMANCE STATUS: 0 CONSULTATION NOTE: Mr. 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 HISTORY OF PRESENT ILLNESS: The patient was in his usual state of health until he developed some abdominal pain in early fall 2016. He was taken to the emergency room at [facility] on 02/25/2017. A CT scan was done at that time of the abdomen and pelvis which revealed focal abrupt luminal narrowing of the rectosigmoid colon, which was thought to be a neoplastic stricture. The patient was subsequently seen by Dr. Armijo and underwent colonoscopy and biopsy on 03/02/2017. Pathology revealed a moderately differentiated adenocarcinoma of the colon. There was near complete obstruction in the rectal area. On 03/04/2017, the patient underwent low anterior rectosigmoid resection and pathology revealed a 5.5 cm in length invasive adenocarcinoma of the colon which was circumferential. It was at the junction of the upper rectum and distal sigmoid colon. The tumor invaded the full thickness of the muscularis propria and was present in the subserosa in the puckered area of the upper rectal/distal sigmoid junction. It was also in the perirectal soft tissue. Tumor cells and clusters extended to within less than 1 mm of the serosal surface in the puckered area and focally a few tumor cells were noted on the inked serosal surface in this area. The circumferential resection margin was free of malignancy. The distal and proximal margins were free of malignancy. Metastatic colon cancer were seen in 4 out of 34 dissected lymph nodes. Lymphovascular invasion was seen. Perineural invasion was seen. The patient has done well since surgery, although he does complain of burning urine and blood on defecation since his surgery. The patient is now presenting for postoperative radiation. He has been seen by his medical oncologist, Dr. Pineda. PAST MEDICAL HISTORY: The patient's past medical history is positive for diabetes and hypertension. He also has arthritis. ALLERGIES: The patient has NO KNOWN DRUG ALLERGIES. SOCIAL HISTORY: The patient had smoked two packs of cigarettes per day for over 30 years. He quit in 2008. He drinks alcohol daily. FAMILY HISTORY: The patient's family history is positive for a father with throat cancer and a younger brother also with throat cancer. REVIEW OF SYSTEMS: The patient's review of systems is positive for some tenderness of the anal area as well as some rectal bleeding. He also has some anxiety. He denies nausea, vomiting, fevers, chills, night sweats, diplopia, headaches, anorexia, weight loss, visual disturbances, chest pain, urinary problems, bone pain or neurological problems. PHYSICAL EXAMINATION: PHYSICAL EXAMINATION: The patient is a well-developed, well-nourished male in no acute distress. HEENT exam is normocephalic, atraumatic. Extraocular movements are intact. There is no palpable cervical, supraclavicular, infraclavicular, axillary, or inguinal lymphadenopathy present. Lungs are clear to auscultation and percussion. Heart has a regular rate and rhythm. Abdomen is benign with no hepatosplenomegaly, masses, or tenderness. Rectal examination revealed some tenderness secondary to hemorrhoids. I do not appreciate any blood on my glove. Skeletal examination reveals no tenderness to pressure or percussion of the bony skeleton. Extremities reveal no clubbing, cyanosis, or edema. Neurologic exam is grossly intact as is the remainder of the physical examination. ASSESSMENT: I believe the patient is a candidate for external beam radiation therapy and I have so informed him. I have discussed with the patient in detail the potential benefits as well as possible acute and chronic sequelae of external beam radiation therapy. We discussed the logistics of treatment planning, simulation and subsequent fractionated daily radiation treatments. I have scheduled the patient for simulation and initiation of treatment planning. We will coordinate his care with his medical oncologist, Dr. Pineda. Thank you for allowing us to participate in the care of this very pleasant gentleman. If I could be of any further assistance or provide you with any information, please feel free to contact me at any time. cc: MD Saji Suero Jr, MD Crow Doss MD
== END ==
LOC: M ONCR 13:55
PROVIDERS: ATTEND Radiology Radiation Oncology
DX: C20 Malignant neoplasm of rectum (principal)

== ENCOUNTER 2017-05-18 13:42 | Outpatient (RCR) | payer OTHER | END 2017-06-16 | LOC: M ONCR 13:42 | DX: C21.8 Malignant neoplasm of overlapping sites of rectum, anus and anal canal (principal) | CPT/HCPCS: 77300 ==

== ENCOUNTER → 2017-05-18 | Outpatient (CLI) | payer OTHER | LOC: M RAD 13:37 | DX: C21.8 Malignant neoplasm of overlapping sites of rectum, anus and anal canal (principal) ==

== ENCOUNTER 2017-06-17 09:53 | Outpatient (RCR) | payer OTHER | END 2017-07-14 | LOC: M ONCR 09:53 | DX: C21.8 Malignant neoplasm of overlapping sites of rectum, anus and anal canal (principal) | CPT/HCPCS: 77300 ==

== ENCOUNTER → 2017-10-04 | Outpatient (CLI) | payer OTHER ==
[~2017-10-04] MED LIST changes: -AMLO10TA2 PO; -ASPI81TA85 PO; -GLUCTAB PO; +LIDOCAINE 2% MDV 20 ML VIAL As Ordered; -LIPI20TA PO; -LISI20TA PO; -LOPR1TAB6 PO; -METF500T13 PO; -NORCOTAB PO; -OMEP20CA3 PO; -OMEP40CA2 PO; -VITMTA PO
== END | disposition home or self-care (01) ==
LOC: M IRPRO 09:17
DX: Z45.2 Encounter for adjustment and management of vascular access device (principal); C20 Malignant neoplasm of rectum; G62.0 Drug-induced polyneuropathy
CPT/HCPCS: 36590

== ENCOUNTER → 2018-01-10 | Outpatient (REF) | payer OTHER ==
[2018-01-12 07:33] LABS: CARCINOEMBRYONIC ANTIGEN 1.2 NG/ML (<2.5)
== END ==
LOC: M LAB REF 13:40
DX: C20 Malignant neoplasm of rectum (principal); E83.42 Hypomagnesemia; E87.6 Hypokalemia

== ENCOUNTER → 2018-01-27 | Outpatient (CLI) | payer OTHER ==
[~2018-01-27] MED LIST changes: +GASTROGRAFIN SOLUTION 30ML (Q9963) As Ordered; +ISOVUE-370 76% 100ML VIAL (Q9967) As Ordered; -LIDOCAINE 2% MDV 20 ML VIAL As Ordered
== END ==
LOC: M RAD 08:54
DX: C20 Malignant neoplasm of rectum (principal)
CPT/HCPCS: Q9963

== ENCOUNTER → 2018-02-14 | Outpatient (CLI) | payer OTHER | LOC: M ONCR 12:12 | DX: C21.8 Malignant neoplasm of overlapping sites of rectum, anus and anal canal (principal) ==

== ENCOUNTER 2018-05-03 10:03 | Day surgery (SDC) | payer OTHER ==
[~2018-05-03] VITALS: Ht 167.6 cm; Wt 86.1 kg
[~2018-05-03 10:03] MED LIST changes: +AMLO10TA5 PO; +ASPI81TA85 PO; +ATOR80TA59 PO; +DICL100T6; -GASTROGRAFIN SOLUTION 30ML (Q9963) As Ordered; +GLUCTAB PO; -ISOVUE-370 76% 100ML VIAL (Q9967) As Ordered; +LIPI20TA PO; +LISI20TA PO; +LOPR1TAB6 PO; +METF500T13 PO; +NORCOTAB PO; +OMEP20CA3 PO; +OMEP40CA2 PO; +PROBCAP14 PO; +SILV40CR EXT; +VITMTA PO
[2018-05-03] MEDS ORDERED: NS 1,000 ML IV ONE (10:15)
[2018-05-03] MEDS ORDERED: ROSU40TA3 PO (10:24)
[2018-05-03] MEDS ORDERED: IMOD2CAP PO (10:26)
[2018-05-03] MEDS ORDERED: ALTA1CAP2 PO (10:28)
[2018-05-03] MEDS ORDERED: ALLO100T PO (10:28)
[2018-05-03] MEDS ORDERED: BUPIVACAINE/EPIN 0.25% 30 ML VIAL As Ordered ONE (10:29)
[2018-05-03] MEDS ORDERED: LIDOCAINE 2% INJ 100 MG/5 ML SDV (FOR ANES.) As Ordered ONE (12:08)
[2018-05-03] MEDS ORDERED: PROPOFOL 200 MG/20 ML VIAL As Ordered ONE (12:09)
[2018-05-03 12:15] VITALS: BP 134/82
--- NOTE | 2018-05-03 12:35 | ROOR ---
Patient Name: Gonzalo Berry Procedure Date: 05/03/2018 11:30 AM Date of : 1965 Age: 53 Room: [facility] Gender: Male Note Status: Finalized Procedure: Colonoscopy Indications: High risk colon cancer surveillance: Personal history of rectal cancer, Patient had a low anterior resection for rectal cancer in February 2017. Providers: Clint Stewart MD Referring MD: [facility], Admin. Requesting Provider: Medicines: Monitored Anesthesia Care Complications: No immediate complications. Procedure: Pre-Anesthesia Assessment: - Prior to the procedure, a History and Physical was performed, and patient medications and allergies were reviewed. The patient is competent. The risks and benefits of the procedure and the sedation options and risks were discussed with the patient. All questions were answered and informed consent was obtained. Patient identification and proposed procedure were verified by the physician, the nurse and the outdoor education teacher in the procedure room. Mental Status Examination: alert and oriented. CV Examination: regular rate and rhythm. Prophylactic Antibiotics: The patient does not require prophylactic antibiotics. Prior Anticoagulants: The patient has taken no previous anticoagulant or antiplatelet agents. ASA Grade Assessment: II - A patient with mild systemic disease. After reviewing the risks and benefits, the patient was deemed in satisfactory condition to undergo the procedure. The anesthesia plan was to use monitored anesthesia care (MAC). Immediately prior to administration of medications, the patient was re-assessed for adequacy to receive sedatives. The heart rate, respiratory rate, oxygen saturations, blood pressure, adequacy of pulmonary ventilation, and response to care were monitored throughout the procedure. The physical status of the patient was re-assessed after the procedure. The was introduced through the anus and advanced to the cecum, identified by appendiceal orifice and ileocecal valve. The colonoscopy was performed without difficulty. The patient tolerated the procedure well. The quality of the bowel preparation was excellent except the cecum was poor. Carrots and peas were found in the cecum obscuring about half of the wall. Findings: The digital rectal exam findings include a palpable anastomosis at about 6 cm. There was evidence of a prior end-to-end colo-rectal anastomosis in the distal rectum. This was patent and was characterized by healthy appearing mucosa. The anastomosis was traversed. The exam was otherwise without abnormality. Impression: - A palpable anastomosis at about 6 cm. found on digital rectal exam. - Patent end-to-end colo-rectal anastomosis, characterized by healthy appearing mucosa. - The examination was otherwise normal. - No specimens collected. Recommendation: - Discharge patient to home. - Resume previous diet. - Continue present medications. - Repeat colonoscopy in 1 year for surveillance. Clint Stewart MD 05/03/2018 12:34:36 PM Number of Addenda: 0 Note Initiated On: 05/03/2018 11:30 AM Estimated Blood Loss: Estimated blood loss: none.
== END 2018-05-03 12:24 | disposition home or self-care (01) ==
LOC: M OPP 10:03
PROVIDERS: ATTEND Surgery
DX: Z98.0 Intestinal bypass and anastomosis status (principal); Z85.048 Personal history of other malignant neoplasm of rectum, rectosigmoid junction, and anus; I10 Essential (primary) hypertension; E78.00 Pure hypercholesterolemia, unspecified; J42 Unspecified chronic bronchitis; Z79.82 Long term (current) use of aspirin; Z79.899 Other long term (current) drug therapy; Z92.21 Personal history of antineoplastic chemotherapy; Z92.3 Personal history of irradiation

== ENCOUNTER → 2019-02-06 | Outpatient (CLI) | payer OTHER ==
[~2019-02-06] MED LIST changes: +ALLO100T PO; +ALTA1CAP2 PO; +DICL100T89 PO; +GASTROGRAFIN SOLUTION 30ML (Q9963) As Ordered ONE; +HYDR-3715 PO; +IMOD2CAP PO; +ISOVUE-370 76% 100ML VIAL (Q9967) As Ordered ONE; -LISI20TA PO; +LISI20TA19 PO; +LOPE1LIQ18 PO; -NORCOTAB PO; +OMEP1CAP73 PO; -OMEP20CA3 PO; -OMEP40CA2 PO; +OMEP40CA97 PO; +ROSU40TA4 PO
--- NOTE | 2019-02-18 10:13 | REP ---
CT of the chest with IV contrast: Comparisons are 01/27/2018 04/07/2017. There are no infiltrates. There are no pleural effusions. There are no lung nodules or masses. There are multiple pleural plaques bilaterally, some of which are calcified. This is unchanged. There is a stable enlarged right hilar node measuring 11 mm short axis, unchanged from 04/07/2017. There is no other hilar, mediastinal or axillary lymphadenopathy. This is unchanged. The thoracic aorta is unremarkable. Cardiac size is normal. There is no pericardial effusion. There are no lytic, blastic or destructive skeletal changes. Impression: No interval change. There is a stable enlarged right hilar node as described. There are stable bilateral pleural plaques, some of which are calcified. There are no lung masses, nodules, infiltrates, or effusions. There is no new mediastinal or hilar adenopathy. There are no lytic, blastic or destructive skeletal changes. Electronically Signed by Wolfgang Newman MD 02/18/2019 10:05 A
--- NOTE | 2019-02-18 10:23 | REP ---
CT of the abdomen and pelvis with IV and bowel contrast: Comparison is 01/[birth year]/1928. After IV contrast imaging is performed during the portal venous phase of enhancement and is repeated during the delayed equilibrium phase of enhancement, as previously. The study is performed contiguous with the chest CT this same date, utilizing the same IV contrast bolus. There is a new 19 mm hypodensity posteriorly in the right lobe of the liver on the portal phase. This lesion is almost isointense to hepatic parenchyma on the images without IV contrast and on the delayed equilibrium images. The new appearance of this finding from the prior study is suspicious for an hepatic metastasis. The hepatic parenchyma is otherwise homogeneous. The gallbladder, pancreas and spleen are normal size and unremarkable. The adrenals are unremarkable. Kidneys are unremarkable. The abdominal aorta is unremarkable. There is no periaortic adenopathy or mass. There is no bowel distension or obstruction. There is no ascites. Pelvis: The surgical anastomosis at the rectosigmoid colon is unchanged. There is no evidence of tumor recurrence at the anastomosis. The pelvic bowel loops are otherwise unremarkable. There is no ascites. The bladder is unremarkable. There are no lytic, blastic or destructive skeletal changes. Impression: There is a new 19 mm hepatic hypodensity posteriorly in the right lobe of the liver. The new appearance of this lesion is suspicious for hepatic metastasis. No other evidence of metastatic disease is identified. There is no adenopathy. There is no ascites. There is no evidence of tumor recurrence at the rectosigmoid surgical anastomosis. Electronically Signed by Wolfgang Newman MD 02/18/2019 10:14 A
== END ==
LOC: M RAD 11:13
PROVIDERS: ATTEND Internal Medicine Hematology & Oncology
DX: C21.8 Malignant neoplasm of overlapping sites of rectum, anus and anal canal (principal); R91.8 Other nonspecific abnormal finding of lung field; K76.89 Other specified diseases of liver
CPT/HCPCS: 71260; 74178; Q9963; Q9967

== ENCOUNTER → 2019-09-04 | Outpatient (CLI) | payer OTHER ==
[~2019-09-04] MED LIST changes: -ISOVUE-370 76% 100ML VIAL (Q9967) As Ordered ONE; +ISOVUE-370 76% 100ML VIAL As Ordered ONE
--- NOTE | 2019-09-05 08:19 | REP ---
Clinical: Liver mass with history of colon cancer. Technique: Axial contrast enhanced images of the abdomen and pelvis using oral (per protocol) and 100 ml Isovue 370 intravenous contrast material with coronal and sagittal re-formations. Delayed images of the abdomen obtained. Comparison: 02/06/2019, 01/27/2018. Findings: 2.5 cm low density lesion in the posterior segment of the right hepatic lobe with subtle incomplete peripheral enhancement is again identified which appears morphologically similar to prior examination but may be slightly increased in size. No other hepatic lesions identified. Spleen, pancreas, gallbladder, bilateral adrenal glands and kidneys are normal. The enteric system is without obstruction or acute inflammatory process. Evidence for prior rectosigmoid resection/anastomoses noted in the surrounding soft tissues are unremarkable. Further evaluation of the pelvis demonstrates normal bladder and age appropriate prostate/seminal vesicles along with small fat containing inguinal hernias. Musculoskeletal structures without focal osseous abnormality. Atherosclerotic changes to the aorta and vasculature without aneurysm or dissection. Impression: Solitary low density lesion in the liver with subtle discontinuous peripheral enhancement appears morphologically unchanged but possibly slightly increased in size. Differential diagnosis cannot exclude a benign lesion such as hemangioma as well as solitary metastatic focus. Consider liver ultrasound follow-up. Electronically Signed by Jb Guerra MD 09/05/2019 08:11 A
== END ==
LOC: M RAD 12:11
PROVIDERS: ATTEND Internal Medicine Medical Oncology
DX: C20 Malignant neoplasm of rectum (principal); K76.89 Other specified diseases of liver
CPT/HCPCS: 74177; Q9963; Q9967

== ENCOUNTER → 2019-09-13 | Outpatient (CLI) | payer OTHER ==
[~2019-09-13] MED LIST changes: -GASTROGRAFIN SOLUTION 30ML (Q9963) As Ordered ONE; -ISOVUE-370 76% 100ML VIAL As Ordered ONE; +ZOFR4TAB16 PO
[2019-09-13 16:37] LABS: BASO % 0.5 % (0.0-1.0); EOS # 0.1 10^3/uL (0.0-0.5); EOS % 2.3 % (0.0-3.0); HEMATOCRIT 39.7 % (42.0-52.0); HEMOGLOBIN 13.5 g/dl (13.5-17.5); LYMPH # 0.9 10^3/uL (1.5-5.0); LYMPH % 23.5 % (24.0-44.0); MEAN CORPUSCULAR HEMOGLOBIN 30.7 pg (27.0-33.0); MEAN CORPUSCULAR VOLUME 90.2 fl (80.0-96.0); MONO # 0.6 10^3/uL (0.0-0.8); MONO % 15.9 % (0.0-5.0); NEUTROPHILS # 2.3 10^3/uL (1.5-8.5); NEUTROPHILS % 57.5 % (36.0-66.0); PLATELET COUNT, AUTOMATED 165 10^3/uL (150-450); WHITE BLOOD COUNT 3.9 10^3/uL (4.0-10.0)
[2019-09-13 16:53] LABS: ALBUMIN 4.1 GM/DL (3.2-5.2); ALT/SGPT 93 U/L (12-78); BILIRUBIN,TOTAL 0.5 MG/DL (0.2-1.0); BLOOD UREA NITROGEN 21 MG/DL (7-18); CALCIUM LEVEL 8.9 MG/DL (8.5-10.1); CARBON DIOXIDE LEVEL 23 MEQ/L (21-32); CHLORIDE LEVEL 112 MEQ/L (98-107); CREATININE FOR GFR 1.09 MG/DL (0.70-1.30); GLOMERULAR FILTRATION RATE > 60.0 (>56); GLUCOSE, FASTING 128 MG/DL (70-100); POTASSIUM SERUM 3.8 MEQ/L (3.5-5.1); SODIUM LEVEL 142 MEQ/L (136-145); TOTAL PROTEIN 7.3 GM/DL (6.4-8.2)
[2019-09-13 17:16] LABS: INR 0.97; PROTHROMBIN TIME 12.6 SECONDS (11.8-14.0)
[2019-09-13 17:17] LABS: PARTIAL THROMBOPLASTIN TIME 30.5 SECONDS (25.0-38.4)
== END ==
LOC: M LRY 14:30
PROVIDERS: ATTEND Internal Medicine Medical Oncology
DX: C20 Malignant neoplasm of rectum (principal)

== ENCOUNTER → 2019-09-15 | Outpatient (CLI) | payer OTHER ==
[~2019-09-15] MED LIST changes: +ACETAMINOPHEN 325 MG TAB As Ordered ONE; +ACETAMINOPHEN TAB 650MG DOSE (2X325MG) PO PRN; +LIDOCAINE 1% MDV 20ML VIAL As Ordered ONE; +SODIUM BICARBONATE 8.4% INJ 50MEQ 50 ML VIAL As Ordered ONE
[2019-09-15 11:30] VITALS: BP 110/74
--- NOTE | 2019-09-15 15:48 | REP ---
Ultrasound-guided liver biopsy This procedure was performed by Florence AVILES, under the direct supervision of Dr. Osorio. The risks and benefits of the procedure were explained to the patient and informed consent was obtained both verbally and written. Directly prior to the start of the procedure, a formal timeout was done in the procedure room. The right lobe liver mass was localized using ultrasound guidance. The skin was prepped and draped in a sterile fashion. 20 ml of buffered lidocaine was used as a local anesthetic. Using ultrasound guidance a small skin shirlene was made and a 19/20 gauge coaxial needle biopsy system was inserted and advanced into the liver. 5 core biopsy samples were obtained and sent to the lab. The patient tolerated the procedure well and there were no immediate complications. After the appropriate monitored convalescence the patient was discharged home from the department. Reviewed by TRACI Mcgill 09/15/2019 01:06 P Electronically Signed by Wolfgang Osorio MD 09/15/2019 03:40 P
== END ==
LOC: M IRPRO 07:45
PROVIDERS: ATTEND Internal Medicine Medical Oncology
DX: C78.7 Secondary malignant neoplasm of liver and intrahepatic bile duct (principal); Z85.038 Personal history of other malignant neoplasm of large intestine

== ENCOUNTER → 2019-10-03 | Outpatient (CLI) | payer OTHER ==
[~2019-10-03] MED LIST changes: -ACETAMINOPHEN 325 MG TAB As Ordered ONE; -ACETAMINOPHEN TAB 650MG DOSE (2X325MG) PO PRN; -LIDOCAINE 1% MDV 20ML VIAL As Ordered ONE; -SODIUM BICARBONATE 8.4% INJ 50MEQ 50 ML VIAL As Ordered ONE
--- NOTE | 2019-10-03 22:55 | REP ---
PET/CT: HISTORY: Restaging colorectal carcinoma. Recent ultrasound-guided needle biopsy right lobe of the liver lesion positive for metastatic colonic adenocarcinoma. COMPARISON: CT study 09/04/2019. TECHNIQUE: 47 minutes following the intravenous injection of a 9.10 mCi dose of F-18 FDG, three-dimensional PET scintigraphy is acquired from the skull base to the proximal thighs. Triplanar noncontrast CT scanning is acquired through the same anatomic range for attenuation correction and image registration with scan parameters optimized to minimize radiation exposure to the patient. PET scintigraphy and CT datasets were fused and displayed on a workstation with multiplanar and projection display capability. PET/CT FINDINGS: Head and neck soft tissues are unremarkable. There is no abnormal hypermetabolic uptake within the thorax. There are granulomatous calcifications noted in the lungs. The recently biopsied metastasis in the posterior segment of the right lobe of the liver is seen to be hypermetabolic. Maximum standard uptake value in this lesion is 11.5. No other hypermetabolic liver lesion is appreciated. Normal homogeneous uptake is seen in the spleen, gastrointestinal and genitourinary tracts. No hypermetabolic dominic uptake is seen in the abdomen or pelvis. A retroaortic left renal vein is noted incidentally. No abnormal skeletal hypermetabolic uptake is seen. IMPRESSION: The known metastatic liver lesion is hypermetabolic. Otherwise, negative PET scintigraphy. Electronically Signed by Cayetano Kinney MD 10/04/2019 07:54 A
== END ==
LOC: M PLARAD 13:25
PROVIDERS: ATTEND Internal Medicine Medical Oncology
DX: C19 Malignant neoplasm of rectosigmoid junction (principal)
CPT/HCPCS: 78815; A9552

== ENCOUNTER → 2019-12-28 | Outpatient (CLI) | payer OTHER ==
[~2019-12-28] MED LIST changes: -AMLO10TA5 PO; +AMLO1TAB25 PO; +ASPI81CH33 PO; -ASPI81TA85 PO; +ASPI81TA86 PO; +LIDO2.5C15 TOP; +LIDOCAINE 1% MDV 20ML VIAL ONE; -LISI20TA19 PO; +LISI20TA35 PO; +MIDAZOLAM INJ 2MG/2ML VIAL (J2250 PER 1MG) ONE; +ceFAZolin 1GM VIAL (J0690 PER 500MG) ONE; +diphenhydrAMINE 50MG/ML VIAL (J1200) ONE; +fentaNYL 100 MCG/2 ML INJECTION (J3010) ONE
--- NOTE | 2020-01-19 11:39 | POST-OPPD ---
Postoperative Procedure Note Date Of Procedure: Dec 28, 2019 Time Of Procedure: 11:38 IR Ultrasound and fluoroscopy-guided port placement. IR Ultrasound of the neck. IR Moderate sedation. Clinical information: Colon cancer Physician: Dr. Henson. Procedure: The patient was advised of the benefits, risks, and alternatives of the procedure and informed consent was obtained. A time-out was performed with verification of the patient's name, MRN, site of procedure and type of procedure to be performed. The patient was positioned in the supine position on the angiographic table. The site was prepped and draped in the usual sterile fashion. Moderate sedation was performed by the physician including the presence of an independent trained observer who assisted and monitored the patient's level of consciousness and physiologic status. Following the administration of fentanyl and Versed , the physician spent 45 minutes of continuous face to face time with the patient. Ultrasound of the neck reveals a patent and compressible right internal jugular vein. A seafood manager radiograph reveals no gross abnormality. The neck and anterior chest wall were anesthetized with lidocaine. The right internal jugular vein was accessed using a microintroducer needle under ultrasound guidance, via a lateral approach. An 018 wire was advanced into the superior vena cava, the needle was removed and a microsheath was placed. An Amplatz wire was then passed into the inferior vena cava. An incision at the internal jugular vein access site and anterior chest wall were made using a scalpel. An incision was made at the anterior chest wall. A small pocket was created using a combination of blunt and sharp dissection. A tunneling device was then used to pass the catheter from the pocket to the neck puncture site. An 8- Sudanese Angio Red Seraphim Smart power port was then positioned in the pocket. The catheter was then measured and cut. The introducer sheath was exchanged for a peel-away sheath. The catheter was passed through the peel-away sheath into the internal jugular vein and the peel-away sheath was removed. The port tip was positioned at the cavoatrial junction. The port was then accessed with a Parkinson needle. The port flushes and aspirates well. The puncture site in the neck was closed. The chest wall incision was then closed with 2-0 Vicryl and 4-0 Monocryl. Glue and Steri- Strips were applied. A sterile dressing was then applied. The patient tolerated the procedure well and was returned to the PRU in stable condition. Estimated blood loss: <5 ml. Complications: None. Conclusion: 1. Successful placement of an 8-Sudanese Angio dynamics Smart power port via the right internal jugular vein. The port is ready for immediate use. 2. Patient to follow up in IR clinic in 2 weeks. Thank you for this referral. JT HENSON MD Jan 19, 2020 11:39
== END ==
LOC: M RAD 09:24 → M IRPRO 09:24
PROVIDERS: ATTEND Specialist
DX: C18.9 Malignant neoplasm of colon, unspecified (principal); C78.7 Secondary malignant neoplasm of liver and intrahepatic bile duct
CPT/HCPCS: 36561; 99152; 99153; C1769; C1788; C1894; J0690; J1200; J1642; J1644; J2250; J3010

== ENCOUNTER → 2020-01-16 | Outpatient (POV) | payer OTHER ==
[~2020-01-16] MED LIST changes: -LIDOCAINE 1% MDV 20ML VIAL ONE; -MIDAZOLAM INJ 2MG/2ML VIAL (J2250 PER 1MG) ONE; -ceFAZolin 1GM VIAL (J0690 PER 500MG) ONE; -diphenhydrAMINE 50MG/ML VIAL (J1200) ONE; -fentaNYL 100 MCG/2 ML INJECTION (J3010) ONE
--- NOTE | 2020-01-17 14:38 | IRPN ---
[facility] IR Progress Note IR Progress Note DATE: Jan 16, 2020 Patient agreed to this telephone follow-up with visual. Duration of call 5 minutes. FOLLOW-UP: Status post port placement. Port is being used without difficulty. Patient denies pain, discharge at site or fevers. ON EXAMINATION: Video conferencing was performed. The port site appears clean and healing well. No redness or discharge. Couple of Steri-Strips remain in place and these will fall off. IMPRESSION: Doing well status post port placement. No further follow-up scheduled unless initiated by patient and/or referring provider. Thank you for this referral Allergies Coded Allergies: No Known Allergies (Unverified , 09/12/18) JT CARRASCO MD Jan 17, 2020 14:38
== END ==
LOC: M TMIRPOV 09:44
PROVIDERS: ATTEND Radiology Diagnostic Radiology
DX: Z45.2 Encounter for adjustment and management of vascular access device (principal)

== ENCOUNTER → 2020-03-26 | Outpatient (CLI) | payer OTHER ==
[~2020-03-26] MED LIST changes: +GASTROGRAFIN SOLUTION 30ML (Q9963) As Ordered ONE; +ISOVUE-370 76% 100ML VIAL As Ordered ONE
--- NOTE | 2020-03-29 06:21 | REP ---
INDICATION: SURVEILLANCE OF COLON CANCER COMPARISON: CT dated 02/06/2019; PET-CT dated 10/03/2019 TECHNIQUE: Axial contrast enhanced images from the thoracic inlet to the upper abdomen with coronal and sagittal reformations using 100 ml Isovue 370 intravenous contrast material followed by CT of the abdomen and pelvis.. This CT examination was performed using the following dose reduction techniques: Automated exposure control, adjustment of mA and/or kv according to the patient's size, and use of iterative reconstruction technique. FINDINGS: Small partially calcified scattered pleural plaques primarily noted in the upper lung zones along with calcified granuloma in the apical left lower lobe remains stable. No acute consolidation, suspicious nodule or mass lesion identified. No pleural effusion. No pneumothorax. Tracheobronchial tree is patent. 15 mm stable right hilar lymph node is again noted. No further adenopathy identified. Mediastinum demonstrates normal thoracic aorta, pulmonary vasculature, and heart/pericardium. Incidental atherosclerotic changes to the coronary arteries noted. [id number] identified with tip in the SVC. Surrounding musculoskeletal structures without acute osseous abnormality. IMPRESSION: Stable chronic changes as described above. No evidence for acute mediastinal or pleuroparenchymal process. Specifically, no obvious metastatic disease identified. <Electronically signed by Jb Guerra > 03/29/20 0617
--- NOTE | 2020-03-29 06:28 | REP ---
INDICATION: SURVEILLANCE OF COLON CANCER. COMPARISON: CT dated 09/04/2019; PET-CT dated 10/03/2019 TECHNIQUE: Axial contrast-enhanced images from the lung bases to the pubic symphysis using 100 cc Isovue 370 intravenous contrast material. Delayed images of the abdomen along with coronal and sagittal reformations obtained.. This CT examination was performed using the following dose reduction techniques: Automated exposure control, adjustment of mA and/or kv according to the patient's size, and the use of iterative reconstruction technique. FINDINGS: Partial hepatic resection along the posterior right lobe noted. No obvious enhancing hepatic lesion identified. Spleen, pancreas, bilateral adrenal glands and kidneys are normal. Evidence for prior cholecystectomy noted. The enteric system including stomach, small, and large bowel appears relatively normal. Evidence for prior partial resection at the rectosigmoid level noted. Scattered colonic diverticula noted without acute diverticulitis. No evidence for obstruction or acute inflammatory process. Normal terminal ileum and appendix are identified in the right lower quadrant. Small fat containing inguinal hernias are identified. Pelvis demonstrates normal bladder and age-appropriate prostate/seminal vesicles. No ascites. No free air. No intraperitoneal or retroperitoneal adenopathy. Abdominal aorta and vasculature appear normal. Musculoskeletal structures are intact and without acute osseous abnormality. IMPRESSION: No acute abdominopelvic pathology appreciated. Evidence for prior partial hepatic resection without focal hepatic lesion identified. No evidence for acute metastatic disease. No ascites. No free air. No adenopathy. <Electronically signed by Jb Guerra > 03/29/20 0624
== END ==
LOC: M RAD 07:41
PROVIDERS: ATTEND Internal Medicine Hematology & Oncology
DX: C18.9 Malignant neoplasm of colon, unspecified (principal)

== ENCOUNTER → 2020-07-16 | Outpatient (CLI) | payer OTHER ==
[~2020-07-16] MED LIST changes: +FOLTTAB9 PO; +ONDA8TAB10 PO
--- NOTE | 2020-07-16 13:25 | REP ---
INDICATION: LIVER METS COMPARISON: 03/26/2020 TECHNIQUE: Axial contrast enhanced images from the thoracic inlet to the upper abdomen using 100 ml Isovue 370 intravenous contrast material followed by CT of the abdomen and pelvis. Coronal and sagittal reformations obtained. This CT examination was performed using the following dose reduction techniques: Automated exposure control, adjustment of mA and/or kv according to the patient's size, and use of iterative reconstruction technique. FINDINGS: Relatively stable partially calcified pleural plaques are again identified. The lung marie are well aerated and without consolidation, effusion, suspicious nodule or mass lesion. Tracheobronchial tree is patent. Stable right hilar lymph node again noted. No further adenopathy identified. Stable atherosclerotic changes to the thoracic aorta and coronary arteries noted without aortic aneurysm/dissection or cardiomegaly. No pericardial effusion. [id number] identified with tip in the SVC. Surrounding osseous structures without acute abnormality. IMPRESSION: 1. Stable partially calcified pleural plaques. 2. No acute mediastinal or pleuroparenchymal process. 3. No evidence for metastatic disease. <Electronically signed by Jb Guerra > 07/16/20 1048
--- NOTE | 2020-07-16 13:31 | REP ---
INDICATION: LIVER METS. COMPARISON: 03/26/2020 TECHNIQUE: Axial contrast-enhanced images from the lung bases to the pubic symphysis using oral and 100 cc Isovue 370 intravenous contrast material obtained in portal venous phase. Arterial and delayed phased images of the abdomen obtained along with coronal and sagittal reformations. This CT examination was performed using the following dose reduction techniques: Automated exposure control, adjustment of mA and/or kv according to the patient's size, and the use of iterative reconstruction technique. FINDINGS: Postsurgical changes along the right posterior hepatic contour noted. Liver demonstrates fatty infiltration without focal hepatic lesion. Evidence for prior cholecystectomy is also noted. Spleen, pancreas, bilateral adrenal glands and kidneys are normal. The enteric system including stomach, small, and large bowel appears relatively normal. No evidence for obstruction, perforation or acute inflammatory process. There is evidence for prior partial resection/anastomosis at the rectosigmoid level. Normal terminal ileum, appendix and cecum noted in the right lower quadrant. Pelvis demonstrates normal bladder and age-appropriate prostate/seminal vesicles. Small fat containing inguinal hernias noted. No ascites. No free air. No intraperitoneal or retroperitoneal adenopathy. Atherosclerotic changes to the aorta and vasculature appreciated without aneurysm or dissection. Musculoskeletal structures are intact and without acute osseous abnormality. IMPRESSION: No acute abdominopelvic pathology appreciated. Postsurgical changes remains stable. No evidence for recurrence or metastatic disease. <Electronically signed by Jb Guerra > 07/16/20 [id number]
== END ==
LOC: M RAD 11:26
PROVIDERS: ATTEND Internal Medicine Hematology & Oncology
DX: C18.9 Malignant neoplasm of colon, unspecified (principal); C78.7 Secondary malignant neoplasm of liver and intrahepatic bile duct; I70.0 Atherosclerosis of aorta
CPT/HCPCS: 71260; 74177; Q9963; Q9967

== ENCOUNTER → 2020-10-28 | Outpatient (CLI) | payer OTHER ==
[~2020-10-28] MED LIST changes: -GASTROGRAFIN SOLUTION 30ML (Q9963) As Ordered ONE; -ISOVUE-370 76% 100ML VIAL As Ordered ONE; +LIDO1CRE42 TOP; -LIDO2.5C15 TOP; +[UNRECOGNIZED DRUG - OTHER]
--- NOTE | 2020-10-29 09:34 | REP ---
INDICATION: RECTAL CANCER COMPARISON: 07/16/2020, 03/26/2020, 02/06/2019 TECHNIQUE: Axial noncontrast images from the thoracic inlet to the upper abdomen with coronal and sagittal reformations. This CT examination was performed using the following dose reduction techniques: Automated exposure control, adjustment of mA and/or kv according to the patient's size, and use of iterative reconstruction technique. FINDINGS: Lung marie again demonstrate scattered partially calcified pleural plaques, calcified lymph node, and calcified granuloma unchanged. No acute consolidation, suspicious nodule, or mass. No pleural effusion. No pneumothorax. Tracheobronchial tree is patent. No significant adenopathy. Thoracic aorta, pulmonary vasculature, and heart/pericardium are essentially stable and again demonstrate atherosclerotic changes. [id number] identified with tip in the SVC. Musculoskeletal structures are intact and without acute osseous abnormality. IMPRESSION: Chronic stable changes including prior granulomatous disease and pleural plaques. No acute mediastinal or pleuroparenchymal process. No evidence for metastatic disease. <Electronically signed by Jb Guerra > 10/29/20 [id number]
--- NOTE | 2020-10-29 09:50 | REP ---
INDICATION: RECTAL CANCER COMPARISON: 10/28/2020, 03/26/2020 TECHNIQUE: Axial noncontrast images from the lung bases to the pubic symphysis with coronal and sagittal reformations. This CT examination was performed using the following dose reduction techniques: Automated exposure control, adjustment of mA and/or kv according to the patient's size, and use of iterative reconstruction technique. FINDINGS: Liver again demonstrates partial right hepatectomy. Evidence for prior cholecystectomy. Spleen, pancreas, bilateral adrenal glands and kidneys are essentially normal for noncontrast evaluation. Evaluation of the enteric system demonstrates partial resection and anastomosis at the rectosigmoid level. Scattered sigmoid diverticula noted without acute diverticulitis. Normal terminal ileum, appendix and cecum identified in the right lower quadrant. No bowel obstruction or acute inflammatory process noted. Pelvis demonstrates normal bladder and mild prostatomegaly along with small fat containing inguinal hernias. No ascites. No free air. No adenopathy. Atherosclerotic changes to the aorta and vasculature noted without aneurysm. Musculoskeletal structures demonstrate age-related changes without acute osseous abnormality. IMPRESSION: 1. No acute abdominopelvic pathology appreciated. 2. No evidence for metastasis. 3. Diverticulosis without acute diverticulitis. 4. Mild prostatomegaly. <Electronically signed by Jb Guerra > 10/29/20 [id number]
== END ==
LOC: M RAD 09:47
PROVIDERS: ATTEND Internal Medicine Hematology & Oncology
DX: C20 Malignant neoplasm of rectum (principal)

== ENCOUNTER → 2021-07-04 | Outpatient (CLI) | payer BC ==
[~2021-07-04] MED LIST changes: +GASTROGRAFIN SOLUTION 30ML (Q9963) As Ordered ONE; +ISOVUE-370 76% 100ML VIAL As Ordered ONE; +METF-839 PO; +OMEP40CA4 PO; -OMEP40CA97 PO; +ONDA-84 PO; -ONDA8TAB10 PO
== END ==
LOC: M RAD 15:53
PROVIDERS: ATTEND Internal Medicine Hematology & Oncology
DX: C18.9 Malignant neoplasm of colon, unspecified (principal); I25.10 Atherosclerotic heart disease of native coronary artery without angina pectoris; R91.8 Other nonspecific abnormal finding of lung field
CPT/HCPCS: 71260; 74177; Q9963; Q9967

== ENCOUNTER → 2022-02-25 | Outpatient (CLI) | payer BC ==
[~2022-02-25] MED LIST changes: +ALTA1CAP3 PO; -GASTROGRAFIN SOLUTION 30ML (Q9963) As Ordered ONE; -ISOVUE-370 76% 100ML VIAL As Ordered ONE; +META0.52 PO
== END ==
LOC: M LABSMTC 09:08
PROVIDERS: ATTEND Anesthesiology
DX: Z01.812 Encounter for preprocedural laboratory examination (principal); Z11.52 Encounter for screening for COVID-19

== ENCOUNTER 2022-03-02 06:37 | Day surgery (SDC) | payer BC, OTHER ==
[~2022-03-02] VITALS: Ht 167.6 cm; Wt 95.3 kg
[~2022-03-02 06:37] MED LIST changes: +NS 1,000 ML IV ONE
[2022-03-02] MEDS ORDERED: SIMETHICONE 40MG/0.6ML DROPS 30ML As Ordered ONE (06:42)
[2022-03-02 08:10] VITALS: BP 106/54
[2022-03-02] MEDS ORDERED: propofoL 200 MG/20 ML VIAL As Ordered ONE (08:25)
[2022-03-02] MEDS ORDERED: LIDOCAINE 2% 100MG/5ML SDV (FOR ANES.) As Ordered ONE (08:25)
== END 2022-03-02 08:15 | disposition home or self-care (01) ==
LOC: M OPP 06:37
PROVIDERS: ATTEND Internal Medicine Gastroenterology
DX: Z12.11 Encounter for screening for malignant neoplasm of colon (principal); Z85.038 Personal history of other malignant neoplasm of large intestine; Z85.048 Personal history of other malignant neoplasm of rectum, rectosigmoid junction, and anus; K64.0 First degree hemorrhoids; K63.89 Other specified diseases of intestine; Z79.02 Long term (current) use of antithrombotics/antiplatelets; Z79.1 Long term (current) use of non-steroidal anti-inflammatories (NSAID); Z79.82 Long term (current) use of aspirin; Z79.84 Long term (current) use of oral hypoglycemic drugs; Z79.899 Other long term (current) drug therapy; I10 Essential (primary) hypertension; E78.00 Pure hypercholesterolemia, unspecified; E11.9 Type 2 diabetes mellitus without complications; J44.9 Chronic obstructive pulmonary disease, unspecified; Z90.49 Acquired absence of other specified parts of digestive tract; Z92.21 Personal history of antineoplastic chemotherapy; Z92.3 Personal history of irradiation

== ENCOUNTER → 2022-06-29 | Outpatient (CLI) | payer BC ==
[~2022-06-29] MED LIST changes: -NS 1,000 ML IV ONE
== END ==
LOC: M PLARAD 14:51
PROVIDERS: ATTEND Internal Medicine Medical Oncology
DX: C20 Malignant neoplasm of rectum (principal)
CPT/HCPCS: 78815; A9552

== ENCOUNTER → 2024-02-01 | Outpatient (REF) ==
[~2024-02-01] MED LIST changes: -LIDO1CRE42 TOP; +LIDO30CR18 TOP; -ROSU40TA4 PO; +ROSU40TA81 PO; +THERTAB52 PO
== END ==
LOC: M PLAIMG 08:56
PROVIDERS: ATTEND Internal Medicine
DX: R52 Pain, unspecified (principal)

== ENCOUNTER → 2024-04-07 | Outpatient (CLI) | payer OTHER | LOC: M PLAIMG 14:06 | PROVIDERS: ATTEND Internal Medicine Pulmonary Disease | DX: R91.8 Other nonspecific abnormal finding of lung field (principal) ==

== ENCOUNTER → 2024-04-26 | Outpatient (CLI) | payer OTHER | LOC: M PLARAD 13:50 | PROVIDERS: ATTEND Internal Medicine Pulmonary Disease | DX: R91.8 Other nonspecific abnormal finding of lung field (principal) | CPT/HCPCS: 78815; A9552 ==

== ENCOUNTER → 2024-05-01 | Outpatient (REF) | payer OTHER ==
[2024-05-01 17:07] LABS: PLATELET COUNT, AUTOMATED 183 10^3/uL (150-450)
[2024-05-01 17:21] LABS: INR 0.9; PARTIAL THROMBOPLASTIN TIME 30.1 SECONDS (24.8-34.2); PROTHROMBIN TIME 12.5 SECONDS (12.5-14.5)
== END ==
LOC: M LAB REF 16:48
PROVIDERS: ATTEND Internal Medicine Pulmonary Disease
DX: R97.8 Other abnormal tumor markers (principal); Z79.01 Long term (current) use of anticoagulants

== ENCOUNTER 2024-06-19 07:31 | Inpatient (IN) | payer OTHER ==
[~2024-06-19] VITALS: Ht 167.6 cm; Wt 82.9 kg
[2024-06-19 08:07] LABS: HEMATOCRIT 44.5 % (42.0-52.0); HEMOGLOBIN 15.1 g/dl (13.5-17.5); MEAN CORPUSCULAR HEMOGLOBIN 30.1 pg (27.0-33.0); MEAN CORPUSCULAR HGB CONC 33.9 g/dl (32.0-36.5); MEAN CORPUSCULAR VOLUME 88.8 fl (80.0-96.0); PLATELET COUNT, AUTOMATED 178 10^3/uL (150-450); RED BLOOD COUNT 5.01 10^6/uL (4.30-6.10); WHITE BLOOD COUNT 5.8 10^3/uL (4.0-10.0)
[2024-06-19 08:22] LABS: INR 0.87; PROTHROMBIN TIME 12.2 SECONDS (12.5-14.5)
[2024-06-19] MEDS ORDERED: fentaNYL 100 MCG/2 ML INJECTION As Ordered ONE (08:58)
[2024-06-19] MEDS ORDERED: LIDOCAINE 1% MDV 20ML VIAL As Ordered ONE (08:59)
[2024-06-19] MEDS ORDERED: MIDAZOLAM INJ 2MG/2ML VIAL As Ordered ONE (08:59)
[2024-06-19] MEDS ORDERED: MOM 30ML SUSPENSION UDC PO PRN (11:15)
[2024-06-19] MEDS ORDERED: ACETAMINOPHEN 325 MG TAB PO PRN (11:15)
[2024-06-19] MEDS ORDERED: MAALOX 30 ML SUSP *UDC PO PRN (11:15)
[2024-06-19] MEDS ORDERED: KETOROLAC 30 MG/ML 1ML VIAL As Ordered ONE (11:40)
[2024-06-19] MEDS: KETOROLAC 30 MG/ML 1ML VIAL IV ONE (11:42)
[2024-06-19] MEDS ORDERED: GLUCAGON INJ 1MG VIAL SC PRN (12:30)
[2024-06-19] MEDS ORDERED: DEXTROSE 50% 50ML SYRINGE IV PRN (12:30)
[2024-06-19] MEDS ORDERED: GLUCOSE 4 GM CHEW PO PRN (12:30)
[2024-06-19 12:38] LABS: BLOOD UREA NITROGEN 27 MG/DL (9-23); CALCIUM LEVEL 9.2 MG/DL (8.5-10.1); CARBON DIOXIDE LEVEL 26 MMOL/L (20-31); CHLORIDE LEVEL 105 MMOL/L (98-107); CREATININE FOR GFR 0.95 MG/DL (0.70-1.30); GLOMERULAR FILTRATION RATE > 60.0 (>56); GLUCOSE, FASTING 113 MG/DL (60-100); POTASSIUM SERUM 4.8 MMOL/L (3.5-5.1); SODIUM LEVEL 141 MMOL/L (136-145)
[2024-06-19 14:48] VITALS: BP 104/71; TEMP 98; O2SAT 100
[2024-06-19] MEDS: INSULIN LISPRO (NovoLOG) PER UNIT SC SCH ×2 (15:02→20:37)
[2024-06-19] MEDS ORDERED: PERCOCET 5MG/325MG TAB PO PRN (16:05)
[2024-06-19] MEDS ORDERED: ONDANSETRON 4MG 2ML VIAL IV PRN (16:05)
[2024-06-19] MEDS ORDERED: BISACODYL 10MG SUPP PR PRN (16:05)
[2024-06-19] MEDS ORDERED: LEVALBUTEROL 1.25MG 0.5ML CONCENTRATE NEB NEB PRN (16:05)
[2024-06-19] MEDS ORDERED: EZET10TA21 PO (16:23)
[2024-06-19] MEDS ORDERED: OMEP40CA5 PO (16:23)
[2024-06-19] MEDS ORDERED: ASPI-615 PO (16:23)
[2024-06-19] MEDS ORDERED: RAMI10CA64 PO (16:23)
[2024-06-19] MEDS ORDERED: LOPE2TAB12 PO (16:23)
[2024-06-19] MEDS ORDERED: DICL50TAB PO (16:23)
[2024-06-19] MEDS ORDERED: METF-838 PO (16:23)
[2024-06-19] MEDS ORDERED: FAMO40TA3 PO (16:23)
[2024-06-19] MEDS ORDERED: JARD1TAB3 PO (16:23)
[2024-06-19] MEDS ORDERED: HOME MED LIST COMPLETE! XX SCH (16:25)
[2024-06-19 16:30] VITALS: BP 110/75; TEMP 97.9; O2SAT 97
[2024-06-19] MEDS: PERCOCET 5MG/325MG TAB PO PRN (17:05)
[2024-06-19] MEDS: KETOROLAC 30 MG/ML 1ML VIAL IV SCH (18:15)
[2024-06-19 19:44] VITALS: BP 106/62; TEMP 97.7; O2SAT 95
[2024-06-19] MEDS: LEVALBUTEROL 1.25MG 0.5ML CONCENTRATE NEB NEB SCH (19:47)
[2024-06-19] MEDS: DOCUSATE SODIUM 100MG CAPSULE PO SCH (20:31)
[2024-06-19] MEDS: METOPROLOL TART 50 MG TAB PO SCH (20:31)
[2024-06-19] MEDS: HEPARIN SOD (PORCINE) 5000UNITS/ML 1ML VIAL/SYRINGE SC SCH (20:38)
[2024-06-19] MEDS ORDERED: OMEPRAZOLE 20MG CAP PO SCH (21:00)
[2024-06-20] VITALS (15 sets, daily range): BP systolic 113–123; BP diastolic 63–82; TEMP 97–98.3; O2SAT 93–98
[2024-06-20 07:07] LABS: BASO % 0.4 % (0.0-1.0); EOS # 0.1 10^3/uL (0.0-0.5); EOS % 2.2 % (0.0-3.0); HEMATOCRIT 40.6 % (42.0-52.0); HEMOGLOBIN 13.9 g/dl (13.5-17.5); LYMPH # 1.3 10^3/uL (1.5-5.0); LYMPH % 28.1 % (24.0-44.0); MEAN CORPUSCULAR HEMOGLOBIN 30.2 pg (27.0-33.0); MEAN CORPUSCULAR HGB CONC 34.2 g/dl (32.0-36.5); MEAN CORPUSCULAR VOLUME 88.1 fl (80.0-96.0); MONO # 0.6 10^3/uL (0.0-0.8); MONO % 12.8 % (2.0-8.0); NEUTROPHILS # 2.5 10^3/uL (1.5-8.5); NEUTROPHILS % 56.3 % (36.0-66.0); PLATELET COUNT, AUTOMATED 130 10^3/uL (150-450); RED BLOOD COUNT 4.61 10^6/uL (4.30-6.10); WHITE BLOOD COUNT 4.5 10^3/uL (4.0-10.0)
[2024-06-20 07:34] LABS: BLOOD UREA NITROGEN 32 MG/DL (9-23); CALCIUM LEVEL 8.7 MG/DL (8.5-10.1); CARBON DIOXIDE LEVEL 26 MMOL/L (20-31); CHLORIDE LEVEL 109 MMOL/L (98-107); CREATININE FOR GFR 0.93 MG/DL (0.70-1.30); GLOMERULAR FILTRATION RATE > 60.0 (>56); GLUCOSE, FASTING 108 MG/DL (60-100); PROCALCITONIN 0.04 ng/ml; SODIUM LEVEL 142 MMOL/L (136-145)
[2024-06-20] MEDS: PANTOPRAZOLE 40MG TAB (PROTONIX) PO ONE (08:32)
[2024-06-20] MEDS: ROSUVASTATIN 10 MG TAB (CRESTOR) PO SCH (08:32)
[2024-06-20] MEDS: EZETIMIBE 10MG TABLET (ZETIA) PO SCH (08:32)
[2024-06-20] MEDS: LOPERAMIDE 2 MG CAPLET PO SCH (08:32)
[2024-06-20] MEDS: allopurinoL 100 MG TAB PO SCH (08:33)
[2024-06-20] MEDS ORDERED: PANTOPRAZOLE 40MG VIAL IV SCH (09:00)
[2024-06-20] MEDS ORDERED: FAMOTIDINE 20 MG TAB PO SCH (09:00)
[2024-06-20] MEDS ORDERED: PANTOPRAZOLE 40MG TAB (PROTONIX) PO SCH (09:00)
[2024-06-21 00:05] VITALS: BP 117/76; TEMP 98.4; O2SAT 95
[2024-06-21 03:39] VITALS: BP 119/76; TEMP 98.9; O2SAT 98
[2024-06-21 06:51] LABS: BASO % 0.6 % (0.0-1.0); EOS # 0.1 10^3/uL (0.0-0.5); EOS % 3.7 % (0.0-3.0); HEMATOCRIT 39.5 % (42.0-52.0); HEMOGLOBIN 13.6 g/dl (13.5-17.5); LYMPH # 1.1 10^3/uL (1.5-5.0); LYMPH % 31.4 % (24.0-44.0); MEAN CORPUSCULAR HEMOGLOBIN 30.4 pg (27.0-33.0); MEAN CORPUSCULAR HGB CONC 34.4 g/dl (32.0-36.5); MEAN CORPUSCULAR VOLUME 88.4 fl (80.0-96.0); MONO # 0.5 10^3/uL (0.0-0.8); NEUTROPHILS # 1.8 10^3/uL (1.5-8.5); PLATELET COUNT, AUTOMATED 133 10^3/uL (150-450); RED BLOOD COUNT 4.47 10^6/uL (4.30-6.10); WHITE BLOOD COUNT 3.5 10^3/uL (4.0-10.0)
[2024-06-21 07:35] VITALS: BP 118/75; TEMP 98.2; O2SAT 97
[2024-06-21 08:33] VITALS: BP 118/75
[2024-06-21 12:00] VITALS: BP 128/75; TEMP 97.3; O2SAT 96
== END 2024-06-21 17:32 | disposition home or self-care (01) | DRG 200 ==
LOC: M IRPRO 07:31 → M PCU 14:35
PROVIDERS: ADMIT Internal Medicine Pulmonary Disease; ATTEND Student in an Organized Health Care Education/Training Program
PROC: 0W9B30Z Drainage of Left Pleural Cavity with Drainage Device, Percutaneous Approach (ICD-10-PCS; 2024-06-19)
PROC: 0BBJ3ZX Excision of Left Lower Lung Lobe, Percutaneous Approach, Diagnostic (ICD-10-PCS; principal; 2024-06-19 09:00)
DX: J95.811 Postprocedural pneumothorax (principal); C78.02 Secondary malignant neoplasm of left lung; Y83.8 Other surgical procedures as the cause of abnormal reaction of the patient, or of later complication, without mention of misadventure at the time of the procedure; E78.5 Hyperlipidemia, unspecified; J44.9 Chronic obstructive pulmonary disease, unspecified; K21.9 Gastro-esophageal reflux disease without esophagitis; K52.9 Noninfective gastroenteritis and colitis, unspecified; M19.90 Unspecified osteoarthritis, unspecified site; M10.9 Gout, unspecified; E11.9 Type 2 diabetes mellitus without complications; R91.8 Other nonspecific abnormal finding of lung field; N40.0 Benign prostatic hyperplasia without lower urinary tract symptoms; Z85.038 Personal history of other malignant neoplasm of large intestine; Z90.49 Acquired absence of other specified parts of digestive tract; Z92.3 Personal history of irradiation; Z92.21 Personal history of antineoplastic chemotherapy; Z79.82 Long term (current) use of aspirin; Z79.899 Other long term (current) drug therapy; Z87.891 Personal history of nicotine dependence

== ENCOUNTER → 2024-07-18 | Outpatient (CLI) | payer OTHER ==
[~2024-07-18] MED LIST changes: +ASPI-615 PO; +DICL50TAB PO; +EZET10TA21 PO; +FAMO40TA3 PO; +JARD1TAB3 PO; +LOPE2TAB12 PO; +METF-838 PO; +OMEP40CA5 PO; +RAMI10CA64 PO
== END ==
LOC: M PLARAD 11:50
PROVIDERS: ATTEND Nurse Practitioner Women's Health
DX: C20 Malignant neoplasm of rectum (principal); R91.8 Other nonspecific abnormal finding of lung field
CPT/HCPCS: 78815; A9552

== ENCOUNTER 2024-09-11 11:10 | Emergency (ER) | payer OTHER ==
[~2024-09-11] VITALS: Ht 167.6 cm; Wt 77.5 kg
[~2024-09-11 11:10] MED LIST changes: +DICL-442 PO; -DICL100T89 PO; +PROC10TA5 PO; +RAMI10CA64; +TRAM50TA2
[2024-09-11 15:59] LABS: HEMATOCRIT 41.6 % (42.0-52.0); HEMOGLOBIN 14.7 g/dl (13.5-17.5); MEAN CORPUSCULAR HEMOGLOBIN 30.2 pg (27.0-33.0); MEAN CORPUSCULAR HGB CONC 35.3 g/dl (32.0-36.5); MEAN CORPUSCULAR VOLUME 85.4 fl (80.0-96.0); PLATELET COUNT, AUTOMATED 117 10^3/uL (150-450); RED BLOOD COUNT 4.87 10^6/uL (4.30-6.10); WHITE BLOOD COUNT 1.7 10^3/uL (4.0-10.0)
[2024-09-11 16:25] LABS: BLOOD UREA NITROGEN 18 MG/DL (9-23); C REACTIVE PROTEIN QUANTITATIV 0.62 MG/DL (<1.0); CALCIUM LEVEL 8.9 MG/DL (8.5-10.1); CARBON DIOXIDE LEVEL 29 MMOL/L (20-31); CHLORIDE LEVEL 103 MMOL/L (98-107); CREATININE FOR GFR 0.71 MG/DL (0.70-1.30); GLOMERULAR FILTRATION RATE > 90.0 (>56); GLUCOSE, FASTING 110 MG/DL (60-100); POTASSIUM SERUM 4.1 MMOL/L (3.5-5.1); SODIUM LEVEL 139 MMOL/L (136-145)
[2024-09-11 17:18] LABS: ATYPICAL LYMPH 13 % (0-5); BASOPHILS 2 % (0-1); EOSINOPHILS 11 % (0-3); LYMPHOCYTES 47 % (16-44); MONOCYTES 3 % (0-5); NEUTROPHILS 24 % (28-66); PLATELET ESTIMATE NORMAL (NORMAL)
[2024-09-11 17:19] LABS: OVALOCYTES 1+
[2024-09-11] MEDS ORDERED: LEVO1TAB39 PO (18:21)
[2024-09-11] MEDS ORDERED: TRIA1CR80 TOP (18:21)
[2024-09-11] MEDS: LevoFLOXacin 500 MG TABLET PO ONE (18:39)
[2024-09-11 18:41] VITALS: BP 112/70; TEMP 98.3; O2SAT 96
== END 2024-09-11 18:41 | disposition home or self-care (01) ==
LOC: M ED 11:10
DX: R21 Rash and other nonspecific skin eruption (principal); K40.90 Unilateral inguinal hernia, without obstruction or gangrene, not specified as recurrent; D70.9 Neutropenia, unspecified; K21.9 Gastro-esophageal reflux disease without esophagitis; E11.9 Type 2 diabetes mellitus without complications; I10 Essential (primary) hypertension; J44.9 Chronic obstructive pulmonary disease, unspecified; Z79.1 Long term (current) use of non-steroidal anti-inflammatories (NSAID); Z79.4 Long term (current) use of insulin; Z79.84 Long term (current) use of oral hypoglycemic drugs; Z79.899 Other long term (current) drug therapy; Z79.810 Long term (current) use of selective estrogen receptor modulators (SERMs)

== ENCOUNTER → 2025-02-26 | Outpatient (CLI) | payer OTHER ==
[~2025-02-26] MED LIST changes: +DOXY-440 PO; -EZET10TA21 PO; +EZET10TA57 PO; +ISOVUE-370 76% 100 ML VIAL As Ordered ONE; +LEVO1TAB39 PO; +MINO100C4 PO; +POTA-298 PO; +TRIA1CR80 TOP
== END ==
LOC: M RAD 09:10
DX: C18.9 Malignant neoplasm of colon, unspecified (principal)